=== PATIENT | male | born 1970 | race Caucasian/White ===

== ENCOUNTER 2017-06-17 14:04 | Inpatient (IN) | payer MEDICARE, OTHER ==
[2017-06-17 15:03] LABS: BASO % 0.5 % (0.0-2.0); EOS % 0.7 % (0.0-4.0); HEMATOCRIT 41.8 % (35.0-51.0); LYMPH # 1.9 K/uL (1.0-4.3); MEAN CELL VOLUME 94.1 fL (80.0-94.0); MEAN CORPUSCULAR HEMOGLOBIN 31.8 pg (27.0-31.0); MEAN CORPUSCULAR HGB CONC 33.8 g/dL (33.0-37.0); MEAN PLATELET VOLUME 7.4 fL (7.2-11.7); MONO # 0.6 K/uL (0.0-0.8); MONO % 9.4 % (0.0-10.0); NRBC % 0.1 % (0.0-2.0); RED CELL DISTRIBUTION WIDTH 13.5 % (11.5-14.5); WHITE BLOOD COUNT 5.9 K/uL (4.8-10.8)
[2017-06-17 15:13] LABS: CHLORIDE 100 mmol/L (98-107)
[2017-06-17 15:14] LABS: POTASSIUM 4.5 mmol/L (3.6-5.2); SODIUM 137 mmol/L (132-148)
[2017-06-17 15:16] LABS: CARBON DIOXIDE 28 mmol/L (22-30); GFR AFRICAN-AMERICAN > 60
[2017-06-17 15:17] LABS: ALB/GLOB RATIO 1.5 (1.0-2.1); ALCOHOL SERUM < 10 mg/dl (0-10); ALKALINE PHOSPHATASE 68 U/L (38-126); ALT/SGPT 103 U/L (21-72); AST/SGOT 95 U/L (17-59); BILIRUBIN,TOTAL 0.5 mg/dL (0.2-1.3); BLOOD UREA NITROGEN 16 mg/dL (9-20); GLUCOSE,RANDOM 86 mg/dL (75-110); TOTAL PROTEIN 7.2 g/dL (6.3-8.3)
--- NOTE | 2017-06-17 15:33 | C.PDOC ---
History Of Present Illness 47 year old male presents to Emergency Department requesting detox from heroin. Notes last use was today. Patient is pre-screened. Otherwise, denies any active physical complaints at this time. Time Seen by Provider: 06/17/17 14:43 Chief Complaint (Nursing): Substance Abuse History Per: Patient History/Exam Limitations: no limitations Onset/Duration Of Symptoms: Gradual Current Symptoms Are (Timing): Still Present Suicide/Self Injury Attempted (Context): None Modifying Factor(s): Other (heorin) Severity: None Pain Scale Rating Of: 0 Associated Symptoms: denies: Suicidal Thoughts, Suicidal Plan Involuntary Hold By: None Recent travel outside of the [place]: No Additional History Per: Patient Past Medical History Reviewed: Historical Data, Nursing Documentation, Vital Signs Vital Signs: Last Vital Signs Temp 97.9 F 06/17/17 14:08 Pulse 78 06/17/17 14:08 Resp 18 06/17/17 14:08 BP 104/72 06/17/17 14:08 Pulse Ox 95 06/17/17 15:36 - Medical History PMH: Asthma Denies: Diabetes, Hepatitis, HIV, HTN, Seizures, Sexually Transmitted Disease - [facility] Procedures DETOXIFICATION SERVICES FOR SUBSTANCE ABUSE TREATMENT (11/14/15) Family History: States: Unknown Family Hx - Social History Hx Alcohol Use: Yes Hx Substance Use: Yes - Immunization History Hx Tetanus Toxoid Vaccination: Yes Hx Influenza Vaccination: Yes Hx Pneumococcal Vaccination: No Review Of Systems Except As Marked, All Systems Reviewed And Found Negative. Constitutional: Negative for: Fever, Chills Cardiovascular: Negative for: Chest Pain, Palpitations Respiratory: Negative for: Cough, Shortness of Breath Gastrointestinal: Negative for: Nausea, Vomiting, Abdominal Pain, Diarrhea Neurological: Negative for: Headache, Dizziness Psych: Negative for: Withdrawal Physical Exam - Physical Exam Appears: Non-toxic, No Acute Distress, Other (no signs of withdrawal) Skin: Normal Color, Warm, Dry Head: Atraumatic, Normacephalic Eye(s): bilateral: Normal Inspection Oral Mucosa: Moist Neck: Normal ROM, Supple Chest: Symmetrical Cardiovascular: Rhythm Regular, No Murmur Respiratory: Normal Breath Sounds, No Rales, No Rhonchi, No Wheezing Extremity: Bilateral: Atraumatic, Normal ROM Neurological/Psych: Oriented x3, Normal Speech ED Course And Treatment - Laboratory Results Result Diagrams: 06/17/17 14:56 06/17/17 14:56 O2 Sat by Pulse Oximetry: 95 (RA) Pulse Ox Interpretation: Normal Medical Decision Making Medical Decision Making: Impression: 47 year old male requesting heroin detox. Plan: * Blood work * Urinalysis * Crisis evaluation Progress note: Labs ordered and reviewed. In my clinical judgment patient is medically cleared and stable for psychiatric admission. Patient was accepted for detox under Dr Welch service Disposition Counseled Patient/Family Regarding: Need For Followup - Disposition Disposition: HOSPITALIZED Disposition Time: 16:30 Condition: STABLE Forms: [employer] (Wallisian) - POA Present On Arrival: None - Clinical Impression Clinical Impression: Heroin abuse - PA / TUBE TESTER / Resident Statement MD/DO has reviewed & agrees with the documentation as recorded. - Scribe Statement The provider has reviewed the documentation as recorded by the Scribe Damion Herring All medical record entries made by the Scribe were at my direction and personally dictated by me. I have reviewed the chart and agree that the record accurately reflects my personal performance of the history, physical exam, medical decision making, and the department course for this patient. I have also personally directed, reviewed, and agree with the discharge instructions and disposition. Decision To Admit - Pt Status Changed To: Hospital Disposition Of: Inpatient - Admit Certification Admit to Inpatient:: After my assessment, the patient will require hospitalization for at least two midnights. This is because of the severity of symptoms shown, intensity of services needed, and/or the medical risk in this patient being treated as an outpatient. - InPatient: Physician Admission Certification: I certify that this patient requires 2 or more midnights of care for the following reason:: Patient to be admitted for detox of opiates - . Bed Request Type: Detox Patient Diagnosis: Heroin abuse
[2017-06-17 16:16] LABS: RBC URINE 1 /hpf (0-3); URINE BACTERIA RARE (<OCC); URINE BILIRUBIN NEGATIVE (NEGATIVE); URINE BLOOD NEGATIVE (NEGATIVE); URINE COLOR Yellow (YELLOW); URINE GLUCOSE (UA) NORMAL (Normal); URINE KETONE NEGATIVE (NEGATIVE); URINE LEUKOCYTE ESTERASE NEG Leu/uL (Negative); URINE PROTEIN NEGATIVE (NEGATIVE); WBC URINE < 1 /hpf (0-5)
[2017-06-17] MEDS ORDERED: Aluminum Hydroxide/Magnesium Hydroxide Susp (30 mL) PO PRN (19:45)
--- NOTE | 2017-06-17 19:54 | PCM.BM ---
<Evie Orta - Last Filed: 06/17/17 19:52> Treatment Plan Problems - Problems identified on initial assessmt Potential for opiate withdrawal Date Initiated: 06/17/17 Time Initiated: 19:53 Assessment reference: NA Status: Active Treatment assets and liabiliti Patient Assests: adapts well, cooperative, ADL independent, negotiates basic needs, cognitively intact Patient Liabilities: substance abuse - Milieu Protocol Maintain good personal hygiene: daily Encourage regular showers, daily Remind patient to perform daily oral care, daily Assist patient to perform ADL's Conduct patient checks and document Observation sheet: Q15 minutes Maintain personal safety: every shift Educate patient to report safety concerns to staff, every shift Monitor environment for contraband/sharps Medication safety: Monitor for expected outcome, potential side effects: every shift, Assess barriers to learning: every shift, Assess readiness for medication education: every shift <Dante Welch - Last Filed: 06/18/17 22:29> - Diagnosis (1) Opioid use disorder, severe, dependence Status: Acute Interventions: 06/18/17 22:29 * Assess 7x/week regarding severity of withdrawal * Educate regarding risks, benefits, side effects and alternatives of medications * Use Motivational Interviewing for abstinence * Use CBT for relapse prevention * Medication management for withdrawal symptoms * Encourage medication assisted treatment * <Margot Perdomo - Last Filed: 06/19/17 13:07> Family Contact Family involvement: Famliy/SO not involved Family contact: Patient declines to allow family contact at present - Goals for Treatment Patient goals for treatment: Complete detox and apply for [facility]. Discharge/Continuing Care - Education Needs Education Needs: Patient Medication, Patient Diagnosis/Disease Process, Patient Coping Skills, Patient Anger Management skills, Patient Placement options, Patient Community resources - Discharge Discharge Criteria: Free of agitation, Normal sleep pattern, No longer exhibiting s/s of withdrawal, Reduction of target symptoms Discharge to:: Substance Abuse Rehab - Treatment Team Participation Patient/Family/SO Statement: 06/19/17 13:07 "I wanna go to [facility]." Discussed with Family/SO: No Was Patient/Family/SO present at Treatment Team Meeting: Yes
--- NOTE | 2017-06-18 14:44 | PCM.PSYCH ---
Initial Psychiatric Evaluation - Initial Psychiatric Evaluation Type of Admission: Voluntary Legal Status: Capacity Chief Complaint (in patient's own words): "heroin" History of Present Illness and Precipitating Events: patient is seen, chart reviewed and case discussed. This is a 48 year old male, single with two children ages 19 and 12. He is homeless and on disability leave for a herniated disc in his back. The patient is here for heroin detox. He is using 10 bags IV daniel for 1 year with his last use 06/17/17 at 11:30am. He started using heroin in his 20's as well as snorting cocaine occasionally. This is his third detox. He detoxed with methadone in the past at a clinic in [place]. He has never been to rehab before or been on a maintenance dose of methadone. Patient smokes 9 cigarettes a day He denies all other drug and alcohol use. Past psych history:bipolar d/o, depression Family psych history: denies psych, drug or alcohol use disorders in family Medical history:asthma Current Medications: Active Medications Generic Name Dose Route Start Last Admin Trade Name Freq PRN Reason Stop Dose Admin Al Hydrox/Mg Hydrox/Simethicone 30 ml 06/17/17 19:45 Maalox 30 Ml PO TID PRN Indigestion / Heartburn Clonidine HCl 0.1 mg 06/17/17 19:45 Catapres PO Q8 PRN COWS Score More or Equal to 5 Hydroxyzine HCl 50 mg 06/17/17 19:46 Atarax PO Q6H PRN Anxiety Loperamide HCl 2 mg 06/17/17 19:45 Imodium PO Q8 PRN Diarrhea Methadone HCl 25 mg 06/18/17 09:45 06/18/17 10:08 Methadone PO 06/24/17 09:44 25 mg Q24H PRIMITIVO Administration Taper Ondansetron HCl 4 mg 06/17/17 19:45 Zofran Tab PO Q8 PRN Nausea/Vomiting Quetiapine Fumarate 100 mg 06/18/17 22:00 Seroquel PO HS PRIMITIVO Trazodone HCl 100 mg 06/17/17 19:46 Desyrel PO HS PRN Insomnia Past Psychiatric History - Past Psychiatric History Previous Treatment History: None Pertinent Medical Hx (Current Medical&Sleep Prob, Allergies): Allergies Allergy/AdvReac Type Severity Reaction Status Date / Time shrimp Allergy Intermediate ANGIOEDEMA Verified 11/14/15 17:25 No Known Home Med 06/17/17 Review of Systems - Constitutional Constitutional: Chills - EENT Eyes: Other (lacrimation) - Psychiatric Psychiatric: Abnormal Sleep Pattern, Anxiety, Difficulty Concentrating. absent : Auditory Hallucinations, Hallucinations, Homicidal Ideation, Memory Loss, Mood Swings, Paranoia, Suicidal Ideation, Visual Hallucinations, Tactile Hallucinations - Hematologic/Lymphatic Additional comments: Patient excessively yawned as well as goosebumps all over skins on arms Mental Status Examination - Personal Presentation Personal Presentation: Looks stated age - Affect Affect: Broad - Motor Activity Motor Activity: Calm - Reliability in Providing Information Reliability in Providing Information: Fair - Speech Speech: Organized - Mood Mood: Anxious - Formal Thought Process Formal Thought Process: No Impairment - Cognitive Functions Orientation: Person, Place, Situation, Time Sensorium: Alert Attention/Concentration: Attentive Estimate of Intelligence: Average Judgement: Intact, as evidence by: Insight regarding need for hospitalization Memory: Recent intact, as evidence by: Ability to recall events of the day, Remote intact, as evidenced by: Abilit to recall sig. life events - Risk Risk: Withdrawal, Diminished functioning - Strength & Assets Inventory Strength & Assets Inventory: Cooperative - Limitations Limitations: Other DSM 5 DX - DSM 5 DSM 5 Diagnosis: opioid withdrawal Opioid use disorder, severe - Recommended/Plan of Treatment Treatment Recommendations and Plan of Treatment: methadone detox As needed medications Gabapentin for augmentation Attend groups and activities Supportive therapy and psychoeducation [place] for abstinence CBT for relapse prevention Encourage MAT Refer to rehab or IOP Attend self-help groups as well 35 min Projected ELOS: 4-5 days Prognosis: good Discharge Plan and Discharge Criteria: no withdrawal rehabilitation and MAT - Smoking Cessation Smoking Cessation Initiated: No Reason for not providing: declines patch
--- NOTE | 2017-06-19 14:14 | PCM.PYCHPN ---
Psychiatric Progress Note - Psychiatric Progress Note Patient seen today, length of contact: 16 min Patient Chief Complaint: "I feel tired today" Problems Identified/Issues Discussed: The pt is seen, chart reviewed, case discussed with staff. The pt is compliant with medications and reports no side-effects aside from difficult sleep. Symptoms are improving but needs more time to stabilize. After care discussed, support and psychoeducation given. Still c/o withdrawal sxs despite meds and he looks sickly. High relapse risk w/o inpatient detox Medication Change: Yes (detox changes daily) Medical Record Reviewed: Yes Mental Status Examination - Cognitive Function Orientation: Person, Place, Situation, Time Memory: Intact Attention: WNL Concentration: WNL Association: WNL Fund of Knowledge: WNL - Mood Mood: Anxious - Affect Affect: Broad - Speech Speech: Appropriate - Formal Thought Process Formal Thought Process: No Impairment - Suicidal Ideation Suicidal Ideation: No - Homicidal Ideation Homicidal Ideation: No Goal/Treatment Plan - Goal/Treatment Plan Need for Continued Stay: Remain at risks for inpatient hospitalization, Severe depression anxiety, Discharge may exacerbated symptoms, Severe functional impairment Progress Toward Problem(s) and Goals/Treatment Plan: Continue medications Support and psychoeducation daily Attend groups and activities daily After care planning by SHENG Advised to try to stay awake during day to help him sleep at night Estimated Date of D/C: 06/23/17 - Smoking Cessation Smoking Cessation Initiated: No
--- NOTE | 2017-06-20 09:40 | PCM.PYCHPN ---
Psychiatric Progress Note - Psychiatric Progress Note Patient seen today, length of contact: 15 min Patient Chief Complaint: "I couldn't sleep again" Problems Identified/Issues Discussed: The pt is seen, chart reviewed, case discussed with staff. The pt is compliant with medications and reports no side-effects. Symptoms are improving but needs more time to stabilize. After care discussed, support and psychoeducation given. He wants to go to [facility] and doesn't want to be outside to prevent relapse Still anxious and insomniac feels depressed - has a hx of bipolar d/c Medication Change: Yes (detox changes daily, add remeron) Medical Record Reviewed: Yes Mental Status Examination - Cognitive Function Orientation: Person, Place, Situation, Time Memory: Intact Attention: WNL Concentration: Poor Association: WNL Fund of Knowledge: Poor - Mood Mood: Anxious - Affect Affect: Constricted - Speech Speech: Appropriate - Formal Thought Process Formal Thought Process: No Impairment - Suicidal Ideation Suicidal Ideation: No - Homicidal Ideation Homicidal Ideation: No Goal/Treatment Plan - Goal/Treatment Plan Need for Continued Stay: Remain at risks for inpatient hospitalization, Severe depression anxiety, Discharge may exacerbated symptoms, Severe functional impairment Progress Toward Problem(s) and Goals/Treatment Plan: Continue medications Support and psychoeducation daily Attend groups and activities daily After care planning done; he is going to [facility] in [place] Remeron is added for mild depressive sxs and insomnia Estimated Date of D/C: 06/23/17
--- NOTE | 2017-06-21 17:58 | PCM.PYCHPN ---
Psychiatric Progress Note - Psychiatric Progress Note Patient seen today, length of contact: 15 min Patient Chief Complaint: I'm feeling better but still has some withdrawal symptoms. Problems Identified/Issues Discussed: Patient seen. Chart reviewed. Case discussed with the staff. Issues related to illness and treatment were discussed with the patient. Reported compliant with treatment with no adverse affects. Tolerating treatment very well. Reported feeling better, but still have some withdrawal symptoms including chills, body aches, nausea. At the time of evaluation, patient was awake alert oriented 3, had no delusions , no auditory or visual hallucinations, no suicidal ideation or homicidal ideations. Medical Problems: Asthma Diagnostic Results: Reviewed DSM 5 Symptoms Update: Improving with treatment Medication Change: No Medical Record Reviewed: Yes Mental Status Examination - Cognitive Function Orientation: Person, Place, Situation, Time Memory: Intact Attention: WNL Concentration: WNL Association: WNL Fund of Knowledge: [facility] Decription of patient's judgement and insights: Fair - Mood Mood: Anxious - Affect Affect: Other (Appropriate) - Speech Speech: Appropriate - Formal Thought Process Formal Thought Process: No Impairment Psychotic Thoughts and Behaviors: None - Suicidal Ideation Suicidal Ideation: No - Homicidal Ideation Homicidal Ideation: No Goal/Treatment Plan - Goal/Treatment Plan Need for Continued Stay: Remain at risks for inpatient hospitalization, Discharge may exacerbated symptoms, Severe functional impairment Progress Toward Problem(s) and Goals/Treatment Plan: Patient education Supportive therapy Continue treatment as before. Estimated Date of D/C: 06/23/17 - Smoking Cessation Smoking Cessation Initiated: No
[2017-06-22 06:45] VITALS: RESP 18
--- NOTE | 2017-06-22 15:31 | PCM.PYCHPN ---
Psychiatric Progress Note - Psychiatric Progress Note Patient seen today, length of contact: 15 min Patient Chief Complaint: I'm feeling better but still has some withdrawal symptoms. I'm still feeling cold. Problems Identified/Issues Discussed: Patient seen. Chart reviewed. Case discussed with the staff. Issues related to illness and treatment were discussed with the patient. Reported compliant with treatment with no adverse affects. Tolerating treatment very well. Reported feeling better, but still have some withdrawal symptoms including chills, body aches. Most of the time patient stays in his room, isolative. Encouraged patient to go out of his room, socializing with other patients and attend activities on the unit. At the time of evaluation, patient was awake alert oriented 3, had no delusions , no auditory or visual hallucinations, no suicidal ideation or homicidal ideations. Medical Problems: Asthma Diagnostic Results: Reviewed DSM 5 Symptoms Update: Improving with treatment Medication Change: No Medical Record Reviewed: Yes Mental Status Examination - Cognitive Function Orientation: Person, Place, Situation, Time Memory: Intact Attention: WNL Concentration: WNL Association: [facility] Fund of Knowledge: [facility] Decription of patient's judgement and insights: Fair - Mood Mood: Anxious - Affect Affect: Other (Appropriate) - Speech Speech: Appropriate - Formal Thought Process Formal Thought Process: No Impairment Psychotic Thoughts and Behaviors: None - Suicidal Ideation Suicidal Ideation: No - Homicidal Ideation Homicidal Ideation: No Goal/Treatment Plan - Goal/Treatment Plan Need for Continued Stay: Remain at risks for inpatient hospitalization, Discharge may exacerbated symptoms, Severe functional impairment Progress Toward Problem(s) and Goals/Treatment Plan: Patient education Supportive therapy Continue treatment as before. Estimated Date of D/C: 06/23/17 - Smoking Cessation Smoking Cessation Initiated: No
[2017-06-23 03:30] VITALS: TEMP 98.5; O2SAT 97
--- NOTE | 2017-06-23 08:58 | PCM.PYCHDC ---
Mental Status Examination - Mental Status Examination Orientation: Person, Place, Situation, Time Memory: Intact Mood: Anxious Affect: Constricted Speech: Appropriate Attention: WNL Concentration: Poor Association: WNL Fund of Knowledge: WNL Formal Thought Process: No Impairment Suicidal Ideation: No Current Homicidal Ideation?: No Discharge Summary - Discharge Note Reason for Hospitalization: Heroin detox Consultations:: List each consultation separately and include: 1. Reason for request. 2. Findings. 3. Follow-up Summary of Hospital Course include:: 1. Description of specific treatment plan utilized for patients during their course of treatmen. 2. Summarize the time- course for resolution of acute symptoms and/or regressed behaviors. 3. Describe issues identified and worked on during hospitalization. 4. Describe medication utilized. 5. Describe medical problems identified and treated. 6. Reassessment of suicide risk Summary of Hospital Course: patient is seen, chart reviewed and case discussed. This is a 48 year old male, single with two children ages 19 and 12. He is homeless and on disability leave for a herniated disc in his back. The patient is here for heroin detox. He is using 10 bags IV daniel for 1 year with his last use 06/17/17 at 11:30am. He started using heroin in his 20's as well as snorting cocaine occasionally. This is his third detox. He detoxed with methadone in the past at a clinic in [place]. He has never been to rehab before or been on a maintenance dose of methadone. Patient smokes 9 cigarettes a day He denies all other drug and alcohol use. Past psych history:bipolar d/o, depression Family psych history: denies psych, drug or alcohol use disorders in family Medical history:asthma Hospital course: The pt was admitted and started on treatment with psychotherapy, support, psychoeducation and medications. MA and CBT used. The pt attended groups and activities, as well as milieu therapy. All the risks and benefits of medications are discussed and the patient understood and agreed. The pt improved with the treatments provided. After care discussed with the patient. He went to [facility] in [place] He was somewhat withdrawn but overall cooperative and motivated. He did not want to be outside b/c of "relapse risk" so had good insight - Final Diagnosis (DSM 5) Condition upon Discharge: IMPROVED DSM 5: opioid withdrawal Opioid use disorder, severe Disposition: REHAB FACILITY/REHAB UNIT Follow-up Treatment Plan: Continue below medications after discharge. Follow after care plan as discussed. Use relapse prevention skills Return to ER or call 911 if suicidal, homicidal or symptoms relapse. Stay away from stress, alcohol and drugs. See primary doctor regularly and get labs. Prescriptions/Medication Reconciliation: Mirtazapine [Remeron] 15 mg PO HS #30 tab QUEtiapine [Seroquel] 100 mg PO HS #30 tab
[2017-06-23 09:34] VITALS: BP 126/82; PULSE 89
== END 2017-06-23 11:10 | disposition home or self-care (01) | DRG 897 ==
LOC: C.ER 14:04 → C.7D 16:51
PROVIDERS: ADMIT Psychiatry & Neurology Psychiatry; ATTEND Psychiatry & Neurology Psychiatry
PROC: HZ2ZZZZ Detoxification Services for Substance Abuse Treatment (ICD-10-PCS; principal; 2017-06-17)
DX: F11.23 Opioid dependence with withdrawal (principal); F31.9 Bipolar disorder, unspecified; F17.210 Nicotine dependence, cigarettes, uncomplicated; G47.00 Insomnia, unspecified; J45.909 Unspecified asthma, uncomplicated; Z59.0 Homelessness; Z68.20 Body mass index [BMI] 20.0-20.9, adult

== ENCOUNTER 2017-07-27 21:44 | Inpatient (IN) | payer MEDICARE, OTHER ==
--- NOTE | 2017-07-27 21:59 | C.PDOC ---
History Of Present Illness 47 year old male with a Hx of ETOH and opiate abuse presents to the ER with a complaint of feeling depressed and suicidal for the past 5 days. Patient states he wants to jump in the middle of the [place] into moving traffic. Denies homicidal ideation or other complaints. Chief Complaint (Nursing): Psychiatric Evaluation History Per: Patient History/Exam Limitations: no limitations Onset/Duration Of Symptoms: Days Current Symptoms Are (Timing): Still Present Suicide/Self Injury Attempted (Context): None Associated Symptoms: Depression, Suicidal Thoughts, Suicidal Plan Involuntary Hold By: None Recent travel outside of the [place]: No Past Medical History Reviewed: Historical Data, Nursing Documentation, Vital Signs Vital Signs: Last Vital Signs Temp 98.2 F 07/27/17 21:47 Pulse 89 07/27/17 21:47 Resp 16 07/27/17 21:47 BP 138/86 07/27/17 21:47 Pulse Ox 98 07/27/17 22:05 - Medical History PMH: Asthma Surgical History: No Surg Hx - [facility] Procedures DETOXIFICATION SERVICES FOR SUBSTANCE ABUSE TREATMENT (06/17/17) Family History: States: Unknown Family Hx - Social History Hx Alcohol Use: Yes Hx Substance Use: Yes - Immunization History Hx Tetanus Toxoid Vaccination: Yes Hx Influenza Vaccination: Yes Hx Pneumococcal Vaccination: No Review Of Systems Constitutional: Negative for: Fever, Chills Gastrointestinal: Negative for: Nausea, Vomiting, Diarrhea Psych: Positive for: Depression, Suicidal ideation (w/ plan) Physical Exam - Physical Exam Appears: Non-toxic, No Acute Distress Skin: Normal Color, Warm, Dry Head: Atraumatic, Normacephalic Eye(s): bilateral: Normal Inspection Oral Mucosa: Moist Chest: Symmetrical Cardiovascular: Rhythm Regular Respiratory: Normal Breath Sounds, No Rales, No Rhonchi, No Wheezing Gastrointestinal/Abdominal: Soft, No Tenderness Neurological/Psych: Oriented x3, Normal Speech, Other (No focal deficits) ED Course And Treatment - Laboratory Results Result Diagrams: 07/27/17 22:07 07/27/17 22:07 O2 Sat by Pulse Oximetry: 98 (Room air) Pulse Ox Interpretation: Normal Progress Note: Blood work and urinalysis ordered. Crisis notified. Disposition Discussed With : Chelsi Falcon Doctor Will See Patient In The: Hospital Counseled Patient/Family Regarding: Diagnosis - Disposition Disposition: HOSPITALIZED Disposition Time: 23:51 Condition: STABLE Forms: [employer] (Chinese) - POA Present On Arrival: None - Clinical Impression Clinical Impression: Depressive disorder, Opiate abuse, continuous - Scribe Statement The provider has reviewed the documentation as recorded by the Scribe Teodoro Tan All medical record entries made by the Scribe were at my direction and personally dictated by me. I have reviewed the chart and agree that the record accurately reflects my personal performance of the history, physical exam, medical decision making, and the department course for this patient. I have also personally directed, reviewed, and agree with the discharge instructions and disposition.
[2017-07-27 22:10] LABS: BASO % 0.2 % (0.0-2.0); EOS # 0.1 K/uL (0.0-0.7); EOS % 0.5 % (0.0-4.0); HEMATOCRIT 36.7 % (35.0-51.0); LYMPH # 2.4 K/uL (1.0-4.3); LYMPH % 22.1 % (20.0-40.0); MEAN CELL VOLUME 95.1 fL (80.0-94.0); MEAN CORPUSCULAR HEMOGLOBIN 32.1 pg (27.0-31.0); MEAN CORPUSCULAR HGB CONC 33.8 g/dL (33.0-37.0); MEAN PLATELET VOLUME 7.6 fL (7.2-11.7); MONO % 8.9 % (0.0-10.0); RED CELL DISTRIBUTION WIDTH 13.3 % (11.5-14.5); WHITE BLOOD COUNT 10.8 K/uL (4.8-10.8)
[2017-07-27 22:22] LABS: ALCOHOL SERUM 20 mg/dl (0-10); ALKALINE PHOSPHATASE 63 U/L (38-126); ALT/SGPT 74 U/L (21-72); AST/SGOT 66 U/L (17-59); BILIRUBIN,TOTAL 0.7 mg/dL (0.2-1.3); BLOOD UREA NITROGEN 20 mg/dL (9-20); CALCIUM 8.6 mg/dl (8.6-10.4); CARBON DIOXIDE 30 mmol/L (22-30); CHLORIDE 102 mmol/L (98-107); GFR AFRICAN-AMERICAN > 60; GLUCOSE,RANDOM 95 mg/dL (75-110); POTASSIUM 3.7 mmol/L (3.6-5.2); SODIUM 139 mmol/L (132-148); TOTAL PROTEIN 8.3 g/dL (6.3-8.3)
[2017-07-27 22:23] LABS: RBC URINE < 1 /hpf (0-3); URINE BILIRUBIN NEGATIVE (NEGATIVE); URINE BLOOD NEGATIVE (NEGATIVE); URINE COLOR Yellow (YELLOW); URINE GLUCOSE (UA) NORMAL (Normal); URINE KETONE TRACE mg/dL (NEGATIVE); URINE LEUKOCYTE ESTERASE NEG Leu/uL (Negative); URINE PROTEIN NEGATIVE (NEGATIVE); WBC URINE < 1 /hpf (0-5)
--- NOTE | 2017-07-28 01:55 | PCM.BM ---
<MaryRachelle - Last Filed: 07/28/17 01:50> Treatment Plan Problems - Problems identified on initial assessmt Depression Date Initiated: 07/28/17 Time Initiated: 01:51 Assessment reference: NA Status: Active Subtanse Abuse Date Initiated: 07/28/17 Time Initiated: 01:51 Assessment reference: NA Status: Active Treatment assets and liabiliti Patient Assests: adapts well, cooperative, ADL independent, negotiates basic needs, cognitively intact Patient Liabilities: live alone, financial problems, poor support system, substance abuse - Milieu Protocol Maintain good personal hygiene: daily Encourage regular showers, daily Remind patient to perform daily oral care, other Assist patient to perform ADL's (PRN) Conduct patient checks and document Observation sheet: Q15 minutes Maintain personal safety: daily Educate patient to report safety concerns to staff, every shift Monitor environment for contraband/sharps Medication safety: Monitor for expected outcome, potential side effects: every shift, Assess barriers to learning: every shift, Assess readiness for medication education: every shift <Dante Welch - Last Filed: 07/29/17 00:07> - Diagnosis (1) Depressive disorder Status: Acute Interventions: 07/29/17 00:07 * Assess/adjust medications daily and /or as needed * See patient on an individual basis 7x/week to assess symptoms of depression * Monitor for side effects & effectiveness of medications * (2) Opioid use disorder, severe, dependence Status: Acute Interventions: 07/29/17 00:07 * Assess 7x/week regarding severity of withdrawal * Educate regarding risks, benefits, side effects and alternatives of medications * Use Motivational Interviewing for abstinence * Use CBT for relapse prevention * Medication management for withdrawal symptoms * Encourage medication assisted treatment * <Ruth Monae - Last Filed: 07/31/17 10:57> Family Contact Family involvement: Family/SO is involved Family contact: Patient declines to allow family contact at present Discharge/Continuing Care - Education Needs Education Needs: Patient Medication, Patient Coping Skills, Patient Placement options, Patient Community resources - Discharge Discharge Criteria: Tolerates medication w/o severe side effects, No longer exhibiting s/s of withdrawal, Reduction of target symptoms - Treatment Team Participation Discussed with Family/SO: No Was Patient/Family/SO present at Treatment Team Meeting: Yes
[2017-07-28] MEDS ORDERED: Aluminum Hydroxide/Magnesium Hydroxide Susp (30 mL) PO PRN (12:38)
--- NOTE | 2017-07-28 15:27 | PCM.PSYCH ---
Initial Psychiatric Evaluation - Initial Psychiatric Evaluation Type of Admission: Voluntary Legal Status: Capacity Chief Complaint (in patient's own words): "I'm tired of using drugs" History of Present Illness and Precipitating Events: This is a 47 year old male who lives with a cousin in [place]. He is single with two children living in [place] and is unemployed. Patient reports heroin use, last used 5 bags via snorting 1 day ago, average use 10 bags via snorting. He reports withdrawal symptoms of abdominal pain, nausea, vomiting. He also reports cocaine use via snorting. He denies any Xanax/ sedative/hypnotic/anxietolytic use or marijuana use. He reports alcohol use, about 4 drinks daily, but denies any withdrawal symptoms at this time. He reports tobacco use at 0.5 ppd. Patient reports feeling depressed, which he states as having "a long time, maybe like one month," as well as feelings of hopelessness and helplessness. He denies any auditory or visual hallucinations. He denies any suicidal ideations at this time. When asked about suicidal ideations expressed in the ED, he states he had strong feelings of desperation and "just said those things." He denies any plan to commit suicide and agrees to medication and treatment plan. Past medical history: asthma Past psychiatric history: denies Family psychiatric history: denies Family substance use: denies Current Medications: Active Medications Generic Name Dose Route Start Last Admin Trade Name Freq PRN Reason Stop Dose Admin Al Hydrox/Mg Hydrox/Simethicone 30 ml 07/28/17 12:38 Maalox 30 Ml PO TID PRN Indigestion / Heartburn Clonidine HCl 0.1 mg 07/28/17 12:38 Catapres PO Q8 PRN COWS Score More or Equal to 5 Fluoxetine HCl 20 mg 07/28/17 12:45 07/28/17 13:02 Prozac PO 20 mg DAILY PRIMITIVO Administration Loperamide HCl 2 mg 07/28/17 12:38 Imodium PO Q8 PRN Diarrhea Ondansetron HCl 4 mg 07/28/17 12:38 Zofran Tab PO Q8 PRN Nausea/Vomiting Trazodone HCl 50 mg 07/28/17 02:24 Desyrel PO HS PRN Sleep Past Psychiatric History - Past Psychiatric History Pertinent Medical Hx (Current Medical&Sleep Prob, Allergies): Allergies Allergy/AdvReac Type Severity Reaction Status Date / Time shrimp Allergy Intermediate ANGIOEDEMA Verified 07/27/17 21:49 Mirtazapine [Remeron] 15 mg PO HS #30 tab 06/23/17 QUEtiapine [Seroquel] 100 mg PO HS #30 tab 06/23/17 Fluoxetine HCl [Prozac] 40 mg PO DAILY 07/27/17 Review of Systems - Review of Systems All systems: reviewed and no additional remarkable complaints except - Neurological Neurological: absent: Abnormal Gait, Tremor - Psychiatric Psychiatric: Depression, Irritability. absent: Homicidal Ideation, Suicidal Ideation Mental Status Examination - Personal Presentation Personal Presentation: Looks stated age - Affect Affect: Constricted, Depressed - Motor Activity Motor Activity: Calm - Reliability in Providing Information Reliability in Providing Information: Poor, due to altered mood - Speech Speech: Organized, Relevant - Mood Mood: Depressed - Formal Thought Process Formal Thought Process: No Impairment - Obsessions/Compulsions Obsessions: No Compulsions: No - Cognitive Functions Orientation: Person, Place, Situation, Time Sensorium: Alert Attention/Concentration: Attentive Abstract Thinking: [place] Estimate of Intelligence: Average Judgement: Imparied, as evidence by: Poor judgement Memory: Recent intact, as evidence by: Ability to recall events of the day, Remote intact, as evidenced by: Abilit to recall sig. life events - Risk Risk: Diminished functioning - Strength & Assets Inventory Strength & Assets Inventory: Cooperative - Limitations Limitations: Living alone DSM 5 DX - DSM 5 DSM 5 Diagnosis: Major depressive disorder, recurrent, severe w/o psychosis Opioid use disorder severe Opioid withdrawal Cocaine use disorder severe Alcohol use disorder severe Tobacco use disorder severe - Recommended/Plan of Treatment Treatment Recommendations and Plan of Treatment: Methadone detox Prozac for depression Gabapentin for augmentation As needed medications Attend groups and activities Supportive therapy and psychoeducation [place] for abstinence CBT for relapse prevention Encourage MAT Refer to rehab or IOP, and self-help groups. Smoking cessation with [place] Nicotine patch if requested 33 min Projected ELOS: 4-5 days Prognosis: Good with treatment Discharge Plan and Discharge Criteria: No withdrawal symptoms Refer to rehab - Smoking Cessation Smoking Cessation Initiated: Yes
[2017-07-29 07:35] VITALS: O2SAT 97
--- NOTE | 2017-07-29 11:41 | PCM.PYCHPN ---
Psychiatric Progress Note - Psychiatric Progress Note Patient seen today, length of contact: 16 min Patient Chief Complaint: "I'm tired" Problems Identified/Issues Discussed: This patient was seen, chart reviewed, and case discussed with staff. Patient reports poor sleep overnight. He states his mood has improved since yesterday. Staff report he was very isolated, not social, and did not participate in unit activities. He was encouraged to step out of his room more often. Patient is compliant with medications and denies any side effects. Symptoms are improving but need more time to stabilize. After care discussed, support and psychoeducation given. Medication Change: Yes (detox changes daily) Medical Record Reviewed: Yes Mental Status Examination - Cognitive Function Orientation: Person, Place, Situation, Time Memory: Intact Attention: Poor Concentration: Poor Association: WNL Fund of Knowledge: Poor - Mood Mood: Depressed - Affect Affect: Constricted, Depressed - Speech Speech: Soft - Formal Thought Process Formal Thought Process: No Impairment - Suicidal Ideation Suicidal Ideation: No - Homicidal Ideation Homicidal Ideation: No Goal/Treatment Plan - Goal/Treatment Plan Need for Continued Stay: Severe depression anxiety, Discharge may exacerbated symptoms, Severe functional impairment Progress Toward Problem(s) and Goals/Treatment Plan: Methadone detox Prozac for depression Gabapentin for augmentation As needed medications Attend groups and activities Supportive therapy and psychoeducation [place] for abstinence CBT for relapse prevention Encourage MAT Refer to rehab or IOP, and self-help groups. Smoking cessation with [place] Nicotine patch if requested - Smoking Cessation Smoking Cessation Initiated: Yes
--- NOTE | 2017-07-30 15:44 | PCM.PYCHPN ---
Psychiatric Progress Note - Psychiatric Progress Note Patient seen today, length of contact: 17 Patient Chief Complaint: "I'm not good" Problems Identified/Issues Discussed: This patient was seen, chart reviewed, and case discussed with staff. Patient reports poor sleep and appetite. He requests medication change because "the trazodone isn't working." He states his withdrawal is "okay." He reports his mood to be similar to yesterday. Staff continue to report that he is isolated and non-social. He was encouraged to step out of his room more. Patient is compliant with medications and denies any side effects. Symptoms are improving but need more time to stabilize. After care discussed, support and psychoeducation given. Medication Change: Yes (Methadone taper, increase trazodone) Medical Record Reviewed: Yes Mental Status Examination - Cognitive Function Orientation: Person, Place, Situation, Time Memory: Intact Attention: Poor Concentration: Poor Association: WNL Fund of Knowledge: Poor - Mood Mood: Depressed - Affect Affect: Constricted, Depressed - Speech Speech: Soft - Formal Thought Process Formal Thought Process: No Impairment - Suicidal Ideation Suicidal Ideation: No - Homicidal Ideation Homicidal Ideation: No Goal/Treatment Plan - Goal/Treatment Plan Need for Continued Stay: Severe depression anxiety, Discharge may exacerbated symptoms, Severe functional impairment Progress Toward Problem(s) and Goals/Treatment Plan: Methadone detox Prozac for depression Gabapentin for augmentation As needed medications Attend groups and activities Supportive therapy and psychoeducation [place] for abstinence CBT for relapse prevention Encourage MAT Refer to rehab or IOP, and self-help groups. Smoking cessation with [place] Nicotine patch if requested Estimated Date of D/C: 08/01/17 - Smoking Cessation Smoking Cessation Initiated: Yes
--- NOTE | 2017-07-31 11:37 | PCM.PYCHPN ---
Psychiatric Progress Note - Psychiatric Progress Note Patient seen today, length of contact: 18 min Patient Chief Complaint: "I'm still depressed" Problems Identified/Issues Discussed: This patient was seen, chart reviewed, and case discussed with staff. He semi-threatened that if he is released today or tomorrow he would come back to ED b/c he "definitely" will relapse and "get suicidal." When asked to elaborate he said he was accepted by [facility] for Friday, which is when his 30-day ban ends there. He says he will have to stay with his "drug- using friends" or in a jail "where there are drugs." He got quite disturbed when the possibility of a d/c discussed for tomorrow He is indeed depressed, though - doesn't eat his food, sleep is poor even with meds and is isolated a lot but improving Support and psychoed given CBT used Medication Change: Yes (add low dose seroquel for sleep and mood) Medical Record Reviewed: Yes Mental Status Examination - Cognitive Function Orientation: Person, Place, Situation, Time Memory: Intact Attention: Poor Concentration: Poor Association: WNL Fund of Knowledge: Poor - Mood Mood: Depressed - Affect Affect: Constricted, Depressed - Speech Speech: Soft - Formal Thought Process Formal Thought Process: No Impairment - Suicidal Ideation Suicidal Ideation: No - Homicidal Ideation Homicidal Ideation: No Goal/Treatment Plan - Goal/Treatment Plan Need for Continued Stay: Severe depression anxiety, Discharge may exacerbated symptoms, Severe functional impairment Progress Toward Problem(s) and Goals/Treatment Plan: Methadone detox ending Prozac for depression Seroquel for depression and sleep Gabapentin for augmentation As needed medications Attend groups and activities Supportive therapy and psychoeducation [place] for abstinence CBT for relapse prevention Encourage MAT Refer to rehab or IOP, and self-help groups. Smoking cessation with [place] Nicotine patch if requested Estimated Date of D/C: 08/05/17 If changed, why: Needs to go door to door
[2017-08-01 06:59] VITALS: RESP 18
--- NOTE | 2017-08-01 13:21 | PCM.PYCHPN ---
Psychiatric Progress Note - Psychiatric Progress Note Patient seen today, length of contact: 17 min Patient Chief Complaint: "I'm not doing well, very worried about my life after here" Problems Identified/Issues Discussed: This patient is seen, chart reviewed, and case discussed with staff. Support and psychoed given CBT used Diet Clerk spoke to his insurance doctor. He said he WOULD approve his stay until Friday IF they cannot find a "partial care with boarding" We have NOT heard from them since Ther eis no partial care with boarding He cannot go home - he is homeless and he stays with friend who use He is threatening suicide IF he is discharged anywhere but [facility] [place] [facility] [employer] [facility] b/c he wants to go door to door He is NOT eligible for other rehabs due to insurance, hx of suicide threat and also they are always with 2-3 week wait list in [facility] considered getting him today but then they called and resumed Saturday 08/04 admission He agreed with that Sleep is still a problem Medication Change: Yes (methadone ended) Medical Record Reviewed: Yes Mental Status Examination - Cognitive Function Orientation: Person, Place, Situation, Time Memory: Intact Attention: Poor Concentration: Poor Association: WNL Fund of Knowledge: Poor - Mood Mood: Depressed - Affect Affect: Constricted, Depressed - Speech Speech: Soft - Formal Thought Process Formal Thought Process: No Impairment - Suicidal Ideation Suicidal Ideation: No - Homicidal Ideation Homicidal Ideation: No Goal/Treatment Plan - Goal/Treatment Plan Need for Continued Stay: Severe depression anxiety, Discharge may exacerbated symptoms, Severe functional impairment Progress Toward Problem(s) and Goals/Treatment Plan: Methadone detox ended Prozac for depression Seroquel for depression and sleep Gabapentin for augmentation As needed medications Attend groups and activities Supportive therapy and psychoeducation [place] for abstinence CBT for relapse prevention Encourage MAT Refer to rehab or IOP, and self-help groups. Smoking cessation with [place] Nicotine patch if requested Estimated Date of D/C: 08/04/17
--- NOTE | 2017-08-02 09:28 | PCM.PYCHPN ---
Psychiatric Progress Note - Psychiatric Progress Note Patient seen today, length of contact: 16 min Patient Chief Complaint: I am still withdrawing.' Problems Identified/Issues Discussed: Patient seen and evaluated, chart reviewed and discussed with the nurse. Patient remained isolated, confined and withdrawn. He still reports withdrawal symptoms including nausea, headaches, cramps and sweating. He reports depressed mood and at times feelings of hopelessness and helplessness. He is taking medication and denies any side effects. Symptoms are improving but he needs more time to stabilize. Supportive therapy and psychoeducation were given. Medication Change: Yes (methadone ended) Medical Record Reviewed: Yes Mental Status Examination - Cognitive Function Orientation: Person, Place, Situation, Time Memory: Intact Attention: WNL Concentration: Poor Association: WNL Fund of Knowledge: Poor - Mood Mood: Depressed - Affect Affect: Constricted, Depressed - Speech Speech: Soft - Formal Thought Process Formal Thought Process: No Impairment - Suicidal Ideation Suicidal Ideation: No - Homicidal Ideation Homicidal Ideation: No Goal/Treatment Plan - Goal/Treatment Plan Need for Continued Stay: Severe depression anxiety, Discharge may exacerbated symptoms, Severe functional impairment Progress Toward Problem(s) and Goals/Treatment Plan: Methadone detox ended Prozac for depression Seroquel for depression and sleep Gabapentin for augmentation As needed medications Attend groups and activities Supportive therapy and psychoeducation [place] for abstinence CBT for relapse prevention Encourage MAT Refer to rehab or IOP, and self-help groups. Smoking cessation with [place] Nicotine patch if requested Estimated Date of D/C: 08/04/17 - Smoking Cessation Smoking Cessation Initiated: No
--- NOTE | 2017-08-03 22:22 | PCM.PYCHPN ---
Psychiatric Progress Note - Psychiatric Progress Note Patient seen today, length of contact: 15 minutes Patient Chief Complaint: I am better with her treatment. Problems Identified/Issues Discussed: Patient seen, chart reviewed, case discussed with the staff. Issues related to illness and treatment were discussed with the patient and staff. Reported compliant with treatment with no adverse effects. Feeling much better. Aftercare discussed with the patient. Patient was awake, alert and oriented 3. Denied any delusions, auditory or visual hallucinations, suicidal ideations or homicidal ideations at the time of evaluation.. Medical Problems: None reported Diagnostic Results: Reviewed DSM 5 Symptoms Update: Improving with treatment Medication Change: No Medical Record Reviewed: Yes Mental Status Examination - Cognitive Function Orientation: Person, Place, Situation, Time Memory: Intact Attention: WNL Concentration: WNL Association: WNL Fund of Knowledge: [facility] Decription of patient's judgement and insights: Fair - Mood Mood: Neutral - Affect Affect: Other (Appropriate) - Speech Speech: Soft - Formal Thought Process Formal Thought Process: No Impairment - Suicidal Ideation Suicidal Ideation: No - Homicidal Ideation Homicidal Ideation: No Goal/Treatment Plan - Goal/Treatment Plan Need for Continued Stay: Remain at risks for inpatient hospitalization, Discharge may exacerbated symptoms, Severe functional impairment Progress Toward Problem(s) and Goals/Treatment Plan: Patient education Supportive therapy Continue treatment as before Patient wants to go to [facility] for follow[facility]up care after discharge from the hospital. Estimated Date of D/C: 08/04/17 - Smoking Cessation Smoking Cessation Initiated: No
[2017-08-04 07:48] VITALS: BP 111/72; PULSE 66; TEMP 97
--- NOTE | 2017-08-04 10:18 | PCM.PYCHDC ---
Mental Status Examination - Mental Status Examination Orientation: Person, Place, Situation, Time Memory: Intact Mood: Anxious Affect: Broad Speech: Appropriate Attention: WNL Concentration: WNL Association: WNL Fund of Knowledge: WNL Formal Thought Process: No Impairment Suicidal Ideation: No Current Homicidal Ideation?: No Discharge Summary - Discharge Note Reason for Hospitalization: heroin detox, depression Psychiatric History (includes Medical, Family, Personal Hx): denies Consultations:: List each consultation separately and include: 1. Reason for request. 2. Findings. 3. Follow-up Summary of Hospital Course include:: 1. Description of specific treatment plan utilized for patients during their course of treatmen. 2. Summarize the time- course for resolution of acute symptoms and/or regressed behaviors. 3. Describe issues identified and worked on during hospitalization. 4. Describe medication utilized. 5. Describe medical problems identified and treated. 6. Reassessment of suicide risk Summary of Hospital Course: On admission: This is a 47 year old male who lives with a cousin in [place]. He is single with two children living in [place] and is unemployed. Patient reports heroin use, last used 5 bags via snorting 1 day ago, average use 10 bags via snorting. He reports withdrawal symptoms of abdominal pain, nausea, vomiting. He also reports cocaine use via snorting. He denies any Xanax/ sedative/hypnotic/anxietolytic use or marijuana use. He reports alcohol use, about 4 drinks daily, but denies any withdrawal symptoms at this time. He reports tobacco use at 0.5 ppd. Patient reports feeling depressed, which he states as having "a long time, maybe like one month," as well as feelings of hopelessness and helplessness. He denies any auditory or visual hallucinations. He denies any suicidal ideations at this time. When asked about suicidal ideations expressed in the ED, he states he had strong feelings of desperation and "just said those things." He denies any plan to commit suicide and agrees to medication and treatment plan. Past medical history: asthma Past psychiatric history: denies Family psychiatric history: denies Family substance use: denies Hospital course: The patient was admitted and started on treatment with psychotherapy, support, psychoeducation, and medications. [place] and CBT used. Patient attended groups and activities, as well as milieu therapy. All the risks and benefits of medications are discussed, and the patient understood and agreed. Patient improved with the treatments provided. After care discussed with the patient. - Final Diagnosis (DSM 5) Condition upon Discharge: STABLE DSM 5: Major depressive disorder, recurrent, severe, without psychosis Opioid use disorder, severe Opioid withdrawal Cocaine use disorder, severe Alcohol use disorder, severe Tobacco use disorder, severe Disposition: HOME/ ROUTINE Follow-up Treatment Plan: Continue below medications after discharge Follow after care plan as discussed Use relapse prevention skills Return to ER or call 911 if suicidal, homicidal, or if symptoms relapse Stay away from stress, alcohol, and drugs See primary doctor regularly and get labs Prescriptions/Medication Reconciliation: FLUoxetine [Prozac] 20 mg PO DAILY #30 cap hydrOXYzine HCl [Atarax] 50 mg PO HS #30 tab QUEtiapine [SEROquel] 50 mg PO HS #30 tab
== END 2017-08-04 10:45 | disposition home or self-care (01) | DRG 897 ==
LOC: C.ER 21:44 → C.5E 23:52
PROVIDERS: ADMIT Psychiatry & Neurology Psychiatry; ATTEND Psychiatry & Neurology Psychiatry
PROC: HZ2ZZZZ Detoxification Services for Substance Abuse Treatment (ICD-10-PCS; principal; 2017-07-27)
DX: F11.23 Opioid dependence with withdrawal (principal); R45.851 Suicidal ideations; F33.2 Major depressive disorder, recurrent severe without psychotic features; F10.120 Alcohol abuse with intoxication, uncomplicated; F17.200 Nicotine dependence, unspecified, uncomplicated; J45.909 Unspecified asthma, uncomplicated; F14.10 Cocaine abuse, uncomplicated; Y90.1 Blood alcohol level of 20-39 mg/100 ml

== ENCOUNTER 2017-11-01 18:44 | Inpatient (IN) | payer MEDICARE, OTHER ==
--- NOTE | 2017-11-01 19:36 | C.PDOC ---
History Of Present Illness 47 y/o male, with Hx of cocaine and heroin abuse, presents to ED initially complaining of suicidal ideation. However, upon evaluation, pt denies suicidal or homicidal ideation. Pt is requesting detox from cocaine and heroin. Denies any active physical complaints at this time. Time Seen by Provider: 11/01/17 18:56 Chief Complaint (Nursing): Psychiatric Evaluation History Per: Patient History/Exam Limitations: no limitations Onset/Duration Of Symptoms: Gradual Current Symptoms Are (Timing): Still Present Suicide/Self Injury Attempted (Context): None Severity: None Pain Scale Rating Of: 0 Associated Symptoms: denies: Suicidal Thoughts, Suicidal Plan Involuntary Hold By: None Recent travel outside of the [place]: No Additional History Per: Patient Past Medical History Reviewed: Historical Data, Nursing Documentation, Vital Signs Vital Signs: Last Vital Signs Temp 97.8 F 11/01/17 20:19 Pulse 67 11/01/17 20:19 Resp 16 11/01/17 20:19 BP 121/73 11/01/17 20:19 Pulse Ox 97 11/01/17 20:19 - Medical History PMH: Anxiety, Asthma, Back Problems (Back Pain), Bipolar Disorder, Depression Denies: Diabetes, Hepatitis, HIV, HTN, Seizures, Sexually Transmitted Disease - [facility] Procedures DETOXIFICATION SERVICES FOR SUBSTANCE ABUSE TREATMENT (07/27/17) Family History: States: Unknown Family Hx - Social History Hx Alcohol Use: Yes Hx Substance Use: Yes - Immunization History Hx Tetanus Toxoid Vaccination: Yes Hx Influenza Vaccination: No Hx Pneumococcal Vaccination: No Review Of Systems Except As Marked, All Systems Reviewed And Found Negative. Constitutional: Negative for: Fever, Chills Cardiovascular: Negative for: Chest Pain, Palpitations Respiratory: Negative for: Cough, Shortness of Breath Gastrointestinal: Negative for: Nausea, Vomiting, Abdominal Pain Psych: Negative for: Suicidal ideation Physical Exam - Physical Exam Appears: Non-toxic, No Acute Distress Skin: Normal Color, Warm, Dry Head: Atraumatic, Normacephalic Eye(s): bilateral: Normal Inspection Oral Mucosa: Moist Cardiovascular: Rhythm Regular, No Murmur Respiratory: Normal Breath Sounds, No Rales, No Rhonchi, No Wheezing Gastrointestinal/Abdominal: Soft, No Tenderness Extremity: Normal ROM, No Deformity Neurological/Psych: Oriented x3, Normal Speech ED Course And Treatment - Laboratory Results Result Diagrams: 11/01/17 19:34 11/01/17 19:34 Medical Decision Making Medical Decision Making: Blood work, Urinalysis ordered and reviewed. Pt is medically cleared. Disposition - Disposition Disposition: HOSPITALIZED Disposition Time: 21:13 Condition: STABLE Forms: [facility] (Divehi) - Clinical Impression Clinical Impression: Opiate addiction - Scribe Statement The provider has reviewed the documentation as recorded by the Scribe Damion Herring All medical record entries made by the Scribe were at my direction and personally dictated by me. I have reviewed the chart and agree that the record accurately reflects my personal performance of the history, physical exam, medical decision making, and the department course for this patient. I have also personally directed, reviewed, and agree with the discharge instructions and disposition. Decision To Admit - Pt Status Changed To: Hospital Disposition Of: Inpatient - Admit Certification Admit to Inpatient:: After my assessment, the patient will require hospitalization for at least two midnights. This is because of the severity of symptoms shown, intensity of services needed, and/or the medical risk in this patient being treated as an outpatient. - InPatient: Physician Admission Certification: I certify that this patient requires 2 or more midnights of care for the following reason:: needs detox - . Bed Request Type: Detox Admitting Physician: Jennifer Pacheco Patient Diagnosis: Opiate addiction
[2017-11-01 19:37] LABS: BASO % 0.7 % (0.0-2.0); EOS % 0.2 % (0.0-4.0); HEMOGLOBIN 13.9 g/dL (12.0-18.0); LYMPH % 15.3 % (20.0-40.0); MEAN CELL VOLUME 94.8 fL (80.0-94.0); MEAN CORPUSCULAR HEMOGLOBIN 32.5 pg (27.0-31.0); MEAN CORPUSCULAR HGB CONC 34.3 g/dL (33.0-37.0); MEAN PLATELET VOLUME 7.3 fL (7.2-11.7); MONO # 0.3 K/uL (0.0-0.8); NEUT # 5.3 K/uL (1.8-7.0); NEUT % 78.8 % (50.0-75.0); RBC 4.27 Mil/uL (4.40-5.90); RED CELL DISTRIBUTION WIDTH 12.7 % (11.5-14.5); WHITE BLOOD COUNT 6.7 K/uL (4.8-10.8)
[2017-11-01 19:43] LABS: SPERM URINE FEW /hpf; URINE BACTERIA RARE (<OCC); URINE BILIRUBIN NEGATIVE (NEGATIVE); URINE BLOOD NEGATIVE (NEGATIVE); URINE CLARITY Clear (Clear); URINE COLOR Yellow (YELLOW); URINE GLUCOSE (UA) NORMAL (Normal); URINE LEUKOCYTE ESTERASE NEG Leu/uL (Negative); URINE PROTEIN 1+ mg/dL (NEGATIVE)
[2017-11-01 19:53] LABS: ALB/GLOB RATIO 1.4 (1.0-2.1); ALBUMIN 4.5 g/dL (3.5-5.0); ALT/SGPT 80 U/L (21-72); AST/SGOT 86 U/L (17-59); BLOOD UREA NITROGEN 27 mg/dL (9-20); CALCIUM 9.7 mg/dl (8.6-10.4); GFR AFRICAN-AMERICAN > 60; GFR NON-AFRICAN AMERICAN > 60
[2017-11-01 19:54] LABS: BARBITURATES, UR NEGATIVE (NEGATIVE); BENZODIAZEPINES, UR NEGATIVE (NEGATIVE); PHENCYCLIDINE, UR NEGATIVE (NEGATIVE)
[2017-11-01 19:56] LABS: ACETAMINOPHEN < 10.0 ug/mL (10.0-30.0); SALICYLATE < 1.0 [, mg/dL 1]
[2017-11-01 20:15] LABS: OPIATES, UR POSITIVE (NEGATIVE)
--- NOTE | 2017-11-01 22:11 | PCM.BM ---
<Malathi Saenz - Last Filed: 11/01/17 22:10> Treatment Plan Problems - Problems identified on initial assessmt Potential for opiate withdrawal Date Initiated: 11/01/17 Time Initiated: 22:10 Assessment reference: NA Status: Active Treatment assets and liabiliti Patient Assests: adapts well, cooperative, ADL independent, negotiates basic needs, cognitively intact Patient Liabilities: substance abuse - Milieu Protocol Maintain good personal hygiene: daily Encourage regular showers, daily Remind patient to perform daily oral care, daily Assist patient to perform ADL's Conduct patient checks and document Observation sheet: Q15 minutes Maintain personal safety: every shift Educate patient to report safety concerns to staff, every shift Monitor environment for contraband/sharps Medication safety: Monitor for expected outcome, potential side effects: every shift, Assess barriers to learning: every shift, Assess readiness for medication education: every shift <Dante Welch - Last Filed: 11/03/17 13:30> - Diagnosis (1) Opioid use disorder, severe, dependence Status: Acute Interventions: 11/03/17 13:30 * Assess 7x/week regarding severity of withdrawal * Educate regarding risks, benefits, side effects and alternatives of medications * Use Motivational Interviewing for abstinence * Use CBT for relapse prevention * Medication management for withdrawal symptoms * Encourage medication assisted treatment * <Margot Perdomo - Last Filed: 11/05/17 14:04> Family Contact Family involvement: Famliy/SO not involved - Goals for Treatment Patient goals for treatment: Complete detox and transition to methadone maintenance at [facility]. Discharge/Continuing Care - Education Needs Education Needs: Patient Medication, Patient Diagnosis/Disease Process, Patient Coping Skills, Patient Anger Management skills, Patient Placement options, Patient Community resources - Discharge Discharge Criteria: No longer exhibiting s/s of withdrawal, Reduction of target symptoms Discharge to:: Home - Treatment Team Participation Patient/Family/SO Statement: 11/05/17 14:03 "I wanna do methadone..." Discussed with Family/SO: No Was Patient/Family/SO present at Treatment Team Meeting: Yes
--- NOTE | 2017-11-03 00:09 | PCM.PSYCH ---
Initial Psychiatric Evaluation - Initial Psychiatric Evaluation Legal Status: Capacity Chief Complaint (in patient's own words): I'M TIRED OF NEEDED HEROIN TO FUNCTION Patient's Reaction to Hospitalization: I'VE BEREN AT [facility] DETOX BEFORE AND IT HELPED History of Present Illness and Precipitating Events: PT IS A 47 YEAR OLD SINGLE DOMICILED MALE LIVING WITH HIS COUSIN. PARENTS AREA , HE HAS A YOUNGER BROTHER. HE HAS NO PSYCHIATRIC HISTORY. 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 HE HAS NEVER BEEN IN THE . HE HAS BEEN ARRESTED FOR POSSESSION OF CDS AND SERVED A YEAR IN THE [facility]. THERE IS NO FAMILY HISTORY OF PSYCHIATRIC ILLNESS OR SUBSTANCE ABUSE. PT DENIES USE OF ANY OTHER DRUGS EXCEPT HEROINE AND COCAINE. HE STARTED USING HEROIN IN HIS 20S HE USES ABOUT 30 BAGS A DAY. HE OCCASIONALLY MIXES COCAINE WITH THE HEROIN , PT STARTED WITH PAIN KILLERS FOR HIS BACK/ PT HAS HAD ONE PREVIOUS DETOX AT [facility] AND NO OTHERS. HE HAS NEVER BEEN IN A REHAB PT HAS HEPATITIS C. PT/S WITHDRAWAL SYMPTOMS INCLUDE YAWNING RHINORRHEA HOT AND COLD SWEATS AND ANXIETY Current Medications: Active Medications Generic Name Dose Route Start Last Admin Trade Name Freq PRN Reason Stop Dose Admin Clonidine HCl 0.1 mg 11/01/17 21:35 Catapres PO Q8 PRN opiate withdrawal Hydroxyzine HCl 25 mg 11/01/17 21:35 11/02/17 21:02 Atarax PO 25 mg Q6 PRN Administration Anxiety Trazodone HCl 50 mg 11/01/17 21:34 11/02/17 21:03 Desyrel PO 50 mg HS PRN Administration Insomnia Past Psychiatric History - Past Psychiatric History Previous Treatment History: None Pertinent Medical Hx (Current Medical&Sleep Prob, Allergies): Allergies Allergy/AdvReac Type Severity Reaction Status Date / Time shrimp Allergy Intermediate ANGIOEDEMA Verified 11/01/17 19:02 No Known Home Med 11/01/17 Review of Systems - Constitutional Constitutional: Chills, Sweats, Malaise - EENT Eyes: UNREMARKABLE Ears: UNREMARKABLE Nose/Mouth/Throat: UNREMARKABLE - Cardiovascular Cardiovascular: UNREMARKABLE - Respiratory Respiratory: UNREMARKABLE - Gastrointestinal Gastrointestinal: UNREMARKABLE - Genitourinary Genitourinary: UNREMARKABLE - Reproductive: Male Reproductive:Male: UNREMARKABLE - Musculoskeletal Musculoskeletal: Arthralgias, Myalgias - Integumentary Integumentary: UNREMARKABLE - Neurological Neurological: Tremor - Psychiatric Psychiatric: Anxiety - Endocrine Endocrine: UNREMARKABLE - Hematologic/Lymphatic Hematologic: UNREMARKABLE Mental Status Examination - Personal Presentation Personal Presentation: Looks older than stated age - Affect Affect: Constricted - Motor Activity Motor Activity: Calm - Reliability in Providing Information Reliability in Providing Information: Good - Speech Speech: Organized - Mood Mood: Anxious - Formal Thought Process Formal Thought Process: No Impairment - Cognitive Functions Orientation: Person, Place, Situation, Time Sensorium: Alert Attention/Concentration: Attentive Abstract Thinking: As evidence by abstract perception of proverbs Estimate of Intelligence: Average Judgement: Intact, as evidence by: Good judgement Memory: Recent intact, as evidence by: 3/3 object recall, Remote intact, as evidenced by: Ability to recall historical events - Risk Risk: Withdrawal, Falls - Strength & Assets Inventory Strength & Assets Inventory: Intelligence, Employment history - Limitations Limitations: Other DSM 5 DX - DSM 5 DSM 5 Diagnosis: OPIOID USE DISORDER SEVERE CBT [facility] MILIEU RECREATIONAL THERAPY SUPPORTIVE PSYCHOTHERAPY OPIOID WITHDRAWAL METHADONE TAPER COCAINE USE DISORDER CBT [facility] MILIEU AND RECREATIONAL THERAPY SUPPORTIVE PSYCHOTHERAPY - Recommended/Plan of Treatment Treatment Recommendations and Plan of Treatment: SEE ABOVE Projected ELOS: 5 DAYS Prognosis: GOOD WITH TREATMENT Discharge Plan and Discharge Criteria: IOP - Smoking Cessation Smoking Cessation Initiated: No
[2017-11-04 08:35] LABS: HEPATITIS B SURFACE AG Negative (NEGATIVE)
[2017-11-04 08:41] LABS: HEPATITIS A IGM NEGATIVE (NEGATIVE); HEPATITIS B CORE AB NEGATIVE (NEGATIVE)
[2017-11-04 11:11] LABS: HEPATITIS C ANTIBODY REACTIVE (NEGATIVE)
--- NOTE | 2017-11-04 15:00 | PCM.PYCHPN ---
Psychiatric Progress Note - Psychiatric Progress Note Patient seen today, length of contact: 16 minutes Patient Chief Complaint: Im withdrawing Problems Identified/Issues Discussed: The pt is seen, chart reviewed, case discussed with staff. States that treatment is helping. Received 15mg methadone today Support given, CBT and AK used briefly No new symptoms reported, improving slowly and needs more time No SEs from medications, risks discussed. After care discussed - pt says she cannot stay clean outside and he really needs to do detox here and go to a rehab "or maybe methadone program" DSM 5 Symptoms Update: Heroin use disorder Heroin withdrawal Medication Change: Yes (detox changes daily) Medical Record Reviewed: Yes Mental Status Examination - Cognitive Function Orientation: Person, Place, Situation, Time Memory: Impaired Attention: WNL Concentration: WNL Association: WNL Fund of Knowledge: WNL - Mood Mood: Anxious - Affect Affect: Constricted - Speech Speech: Appropriate - Formal Thought Process Formal Thought Process: No Impairment - Suicidal Ideation Suicidal Ideation: No - Homicidal Ideation Homicidal Ideation: No Goal/Treatment Plan - Goal/Treatment Plan Need for Continued Stay: Discharge may exacerbated symptoms, Severe functional impairment Progress Toward Problem(s) and Goals/Treatment Plan: Continue medications Support and psychoeducation daily Attend groups and activities daily After care planning by SHENG Estimated Date of D/C: 11/06/17
--- NOTE | 2017-11-04 22:25 | PCM.PYCHPN ---
Psychiatric Progress Note - Psychiatric Progress Note Patient seen today, length of contact: 15 min Patient Chief Complaint: Im not well" Problems Identified/Issues Discussed: The pt is seen, chart reviewed, case discussed with staff. The pt is compliant with medications and reports no side-effects. Symptoms are improving but needs more time to stabilize. After care discussed, support and psychoeducation given. He now wants to go to a methadone program Medication Change: Yes (detox changes daily) Medical Record Reviewed: Yes Mental Status Examination - Cognitive Function Orientation: Person, Place, Situation, Time Memory: Impaired Attention: WNL Concentration: WNL Association: WNL Fund of Knowledge: WNL - Mood Mood: Anxious - Affect Affect: Constricted - Speech Speech: Appropriate - Formal Thought Process Formal Thought Process: No Impairment - Suicidal Ideation Suicidal Ideation: No - Homicidal Ideation Homicidal Ideation: No Goal/Treatment Plan - Goal/Treatment Plan Need for Continued Stay: Discharge may exacerbated symptoms, Severe functional impairment Progress Toward Problem(s) and Goals/Treatment Plan: Continue medications Support and psychoeducation daily Attend groups and activities daily After care planning by SHENG Estimated Date of D/C: 11/06/17
[2017-11-05 14:16] VITALS: RESP 18
--- NOTE | 2017-11-05 16:22 | PCM.PYCHPN ---
Psychiatric Progress Note - Psychiatric Progress Note Patient seen today, length of contact: 16 min Patient Chief Complaint: Im having trouble eating" Problems Identified/Issues Discussed: The pt is seen, chart reviewed, case discussed with staff. Patient complaining of nausea and abdominal pain which prevents him from obtaining adequate PO intake. He is requesting Ensure. The pt is compliant with medications and reports no side-effects. Symptoms are improving but needs more time to stabilize. After care discussed, support and psychoeducation given. He still wants to go to a methadone program Medication Change: Yes (detox changes daily) Medical Record Reviewed: Yes Mental Status Examination - Cognitive Function Orientation: Person, Place, Situation, Time Memory: Impaired Attention: WNL Concentration: WNL Association: WNL Fund of Knowledge: WNL - Mood Mood: Anxious - Affect Affect: Constricted - Speech Speech: Appropriate - Formal Thought Process Formal Thought Process: No Impairment - Suicidal Ideation Suicidal Ideation: No - Homicidal Ideation Homicidal Ideation: No Goal/Treatment Plan - Goal/Treatment Plan Need for Continued Stay: Discharge may exacerbated symptoms, Severe functional impairment Progress Toward Problem(s) and Goals/Treatment Plan: Continue medications Support and psychoeducation daily Attend groups and activities daily After care planning by SHENG Estimated Date of D/C: 11/06/17
[2017-11-05] MEDS ORDERED: Magnesium Hydroxide Susp 30 ml UD PO ONE (20:43)
--- NOTE | 2017-11-06 08:39 | PCM.PYCHDC ---
Mental Status Examination - Mental Status Examination Orientation: Person, Place, Situation, Time Memory: Intact Mood: Anxious Affect: Constricted Speech: Appropriate Attention: WNL Concentration: Poor Association: WNL Fund of Knowledge: Poor Formal Thought Process: No Impairment Suicidal Ideation: No Current Homicidal Ideation?: No Discharge Summary - Discharge Note Reason for Hospitalization: Opioid detox Consultations:: List each consultation separately and include: 1. Reason for request. 2. Findings. 3. Follow-up Summary of Hospital Course include:: 1. Description of specific treatment plan utilized for patients during their course of treatmen. 2. Summarize the time- course for resolution of acute symptoms and/or regressed behaviors. 3. Describe issues identified and worked on during hospitalization. 4. Describe medication utilized. 5. Describe medical problems identified and treated. 6. Reassessment of suicide risk Summary of Hospital Course: The pt was admitted and started on treatment with psychotherapy, support, psychoeducation and medications. DE and CBT used. The pt attended groups and activities, as well as milieu therapy. All the risks and benefits of medications are discussed and the patient understood and agreed. The pt improved with the treatments provided. He was in bed a lot and isolated but not very depressed. After care discussed with the patient. [facility] to [facility] - Diagnosis (1) Opioid use disorder, severe, dependence Current Visit: No Status: Acute - Final Diagnosis (DSM 5) Condition upon Discharge: STABLE Disposition: HOME/ ROUTINE Follow-up Treatment Plan: Continue below medications after discharge. Follow after care plan as discussed. Use relapse prevention skills Return to ER or call 911 if suicidal, homicidal or symptoms relapse. Stay away from stress, alcohol and drugs. See primary doctor regularly and get labs. Prescriptions/Medication Reconciliation: hydrOXYzine HCl [Atarax] 50 mg PO BID PRN #30 tab PRN Reason: Anxiety traZODone [Desyrel] 100 mg PO HS PRN #30 tab PRN Reason: Insomnia - Smoking Cessation Smoking Cessation Medication prescribed: No - Antipsychotic Medications Pt discharged on 2 or more routine antipsychotic medications: No
[2017-11-06 10:45] VITALS: BP 130/88; PULSE 80; TEMP 97.6; O2SAT 100
== END 2017-11-06 11:30 | disposition home or self-care (01) | DRG 895 ==
LOC: C.ER 18:44 → C.9E 21:07 → C.7D 21:18
PROVIDERS: ADMIT Psychiatry & Neurology Psychiatry; ATTEND Psychiatry & Neurology Psychiatry
PROC: HZ2ZZZZ Detoxification Services for Substance Abuse Treatment (ICD-10-PCS; principal; 2017-11-01)
PROC: HZ56ZZZ Individual Psychotherapy for Substance Abuse Treatment, Psychoeducation (ICD-10-PCS; 2017-11-01)
PROC: HZ99ZZZ Pharmacotherapy for Substance Abuse Treatment, Other Replacement Medication (ICD-10-PCS; 2017-11-01)
PROC: GZ3ZZZZ Medication Management (ICD-10-PCS; 2017-11-01)
DX: F11.23 Opioid dependence with withdrawal (principal); F14.10 Cocaine abuse, uncomplicated; R45.851 Suicidal ideations; F31.9 Bipolar disorder, unspecified; J45.909 Unspecified asthma, uncomplicated

== ENCOUNTER 2017-12-28 23:34 | Inpatient (IN) | payer OTHER ==
--- NOTE | 2017-12-29 00:14 | C.PDOC ---
History Of Present Illness Patient presents to the ER requesting detox from heroin, last use was 6 bag bags this morning. Patient also states he feels depressed and wants to talk to someone. Denies suicidal ideation or homicidal ideation. Time Seen by Provider: 12/29/17 00:14 Chief Complaint (Nursing): Substance Abuse History Per: Patient History/Exam Limitations: no limitations Onset/Duration Of Symptoms: Days Current Symptoms Are (Timing): Still Present Suicide/Self Injury Attempted (Context): None Modifying Factor(s): Other (Heroin) Severity: None Pain Scale Rating Of: 0 Associated Symptoms: Depression. denies: Suicidal Thoughts Involuntary Hold By: None Recent travel outside of the [place]: No Additional History Per: Patient Past Medical History Reviewed: Historical Data, Nursing Documentation, Vital Signs Vital Signs: Last Vital Signs Temp 98.5 F 12/29/17 03:07 Pulse 72 12/29/17 03:07 Resp 18 12/29/17 03:07 BP 112/69 12/29/17 03:07 Pulse Ox 96 12/29/17 03:07 - Medical History PMH: Anxiety, Asthma, Back Problems (Back Pain), Bipolar Disorder, Depression - [facility] Procedures DETOXIFICATION SERVICES FOR SUBSTANCE ABUSE TREATMENT (11/01/17) INDIV PSYCHOTHERAPY FOR SUBSTANCE ABUSE, PSYCHOEDUCATION (11/01/17) MEDICATION MANAGEMENT (11/01/17) PHARMACOTHERAPY FOR SUBSTANCE ABUSE, OTH REPLACE MED (11/01/17) Family History: States: No Known Family Hx - Social History Hx Alcohol Use: Yes Hx Substance Use: Yes (HEROIN) - Immunization History Hx Tetanus Toxoid Vaccination: Yes Hx Influenza Vaccination: Yes Hx Pneumococcal Vaccination: No Review Of Systems Constitutional: Negative for: Fever, Chills Gastrointestinal: Negative for: Nausea, Vomiting Psych: Positive for: Depression. Negative for: Suicidal ideation, Other ( Homicidal ideation) Physical Exam - Physical Exam Appears: Non-toxic Skin: Warm, Dry Head: Normacephalic Eye(s): bilateral: Normal Inspection Oral Mucosa: Moist Neck: Supple Chest: Symmetrical, No Tenderness Cardiovascular: Rhythm Regular Respiratory: No Rales, No Rhonchi, No Wheezing Gastrointestinal/Abdominal: Soft, No Tenderness Back: Normal Inspection Extremity: Normal ROM Extremity: Bilateral: Atraumatic Neurological/Psych: Oriented x3 Gait: Steady ED Course And Treatment - Laboratory Results Result Diagrams: 12/29/17 00:28 12/29/17 00:28 O2 Sat by Pulse Oximetry: 98 (Room air) Pulse Ox Interpretation: Normal Disposition Discussed With Dr.: Tarik Robins Comment: accepted the pt on his service and took over the care at 3:30 AM Doctor Will See Patient In The: Hospital Counseled Patient/Family Regarding: Studies Performed, Diagnosis - Disposition Disposition: HOSPITALIZED Disposition Time: 00:14 Condition: FAIR Forms: [facility] (Portuguese) - POA Present On Arrival: Poor Glycemic Control - Clinical Impression Clinical Impression: Heroin abuse, Opioid use disorder, severe, dependence, Depressive disorder, Drug abuse - Scribe Statement The provider has reviewed the documentation as recorded by the Scribe Teodoro Tan All medical record entries made by the Scribe were at my direction and personally dictated by me. I have reviewed the chart and agree that the record accurately reflects my personal performance of the history, physical exam, medical decision making, and the department course for this patient. I have also personally directed, reviewed, and agree with the discharge instructions and disposition. Decision To Admit - Pt Status Changed To: Hospital Disposition Of: Inpatient - Admit Certification Admit to Inpatient:: After my assessment, the patient will require hospitalization for at least two midnights. This is because of the severity of symptoms shown, intensity of services needed, and/or the medical risk in this patient being treated as an outpatient. - InPatient: Physician Admission Certification: I certify that this patient requires 2 or more midnights of care for the following reason:: After my assessment, the patient will require hospitalization for at least two midnights. This is because of the severity of symptoms shown, intensity of services needed, and/or the medical risk in this patient being treated as an outpatient. - . Bed Request Type: Psychiatry Admitting Physician: Tarik Robins Patient Diagnosis: Heroin abuse, Opioid use disorder, severe, dependence, Depressive disorder, Drug abuse
[2017-12-29 00:30] LABS: BASO # 0.1 K/uL (0.0-0.2); BASO % 0.9 % (0.0-2.0); EOS % 0.1 % (0.0-4.0); HEMOGLOBIN 14.9 g/dL (12.0-18.0); LYMPH # 1.6 K/uL (1.0-4.3); MEAN CELL VOLUME 94.8 fL (80.0-94.0); MEAN CORPUSCULAR HEMOGLOBIN 32.7 pg (27.0-31.0); MEAN CORPUSCULAR HGB CONC 34.5 g/dL (33.0-37.0); MEAN PLATELET VOLUME 7.5 fL (7.2-11.7); MONO # 0.6 K/uL (0.0-0.8); NEUT # 8.4 K/uL (1.8-7.0); RBC 4.56 Mil/uL (4.40-5.90); RED CELL DISTRIBUTION WIDTH 13.1 % (11.5-14.5); WHITE BLOOD COUNT 10.8 K/uL (4.8-10.8)
[2017-12-29 00:56] LABS: SQUAMOUS EPITHIAL < 1 /hpf (0-5); URINE BACTERIA OCC (<OCC); URINE BILIRUBIN NEGATIVE (NEGATIVE); URINE BLOOD NEGATIVE (NEGATIVE); URINE CLARITY Hazy (Clear); URINE GLUCOSE (UA) NORMAL (Normal); URINE LEUKOCYTE ESTERASE NEG Leu/uL (Negative); URINE PROTEIN 2+ mg/dL (NEGATIVE)
[2017-12-29 01:08] LABS: ALB/GLOB RATIO 1.1 (1.0-2.1); ALBUMIN 4.2 g/dL (3.5-5.0); ALT/SGPT 24 U/L (21-72); AST/SGOT 55 U/L (17-59); BLOOD UREA NITROGEN 18 mg/dL (9-20); CALCIUM 9.5 mg/dl (8.6-10.4); GFR AFRICAN-AMERICAN > 60; GFR NON-AFRICAN AMERICAN > 60
[2017-12-29 01:19] LABS: BARBITURATES, UR NEGATIVE (NEGATIVE); BENZODIAZEPINES, UR NEGATIVE (NEGATIVE); PHENCYCLIDINE, UR NEGATIVE (NEGATIVE)
[2017-12-29 01:35] LABS: URINE COLOR YELLOW (YELLOW)
[2017-12-29 01:47] LABS: OPIATES, UR POSITIVE (NEGATIVE)
--- NOTE | 2017-12-29 11:33 | PCM.BM ---
<Tammy Cuba - Last Filed: 12/29/17 11:32> Treatment Plan Problems - Problems identified on initial assessmt potential for opiate withdrawals Date Initiated: 12/29/17 Assessment reference: NA Status: Active potential for alcohol withdrawals Date Initiated: 12/29/17 Assessment reference: NA Status: Active Treatment assets and liabiliti Patient Assests: adapts well, cooperative, ADL independent, negotiates basic needs, cognitively intact Patient Liabilities: substance abuse - Milieu Protocol Maintain good personal hygiene: daily Encourage regular showers, daily Remind patient to perform daily oral care, daily Assist patient to perform ADL's Conduct patient checks and document Observation sheet: Q15 minutes Maintain personal safety: every shift Educate patient to report safety concerns to staff, every shift Monitor environment for contraband/sharps Medication safety: Monitor for expected outcome, potential side effects: every shift, Assess barriers to learning: every shift, Assess readiness for medication education: every shift <Tarik Robins - Last Filed: 12/31/17 16:56> - Diagnosis (1) Opioid use disorder, severe, dependence Status: Acute Interventions: 12/31/17 16:55 Educate regarding risks, benefits, side effects and alternatives of medications * Use Motivational Interviewing for abstinence * Use CBT for relapse prevention * Medication management for withdrawal symptoms * Encourage medication assisted treatment (2) Alcohol use disorder, severe, dependence Status: Acute Interventions: 12/31/17 16:56 Educate regarding risks, benefits, side effects and alternatives of medications * Use Motivational Interviewing for abstinence * Use CBT for relapse prevention * Medication management for withdrawal symptoms * Encourage medication assisted treatment (3) Cocaine use disorder, severe, dependence Status: Acute Interventions: 12/31/17 16:56 Educate regarding risks, benefits, side effects and alternatives of medications * Use Motivational Interviewing for abstinence * Use CBT for relapse prevention * Medication management for withdrawal symptoms * Encourage medication assisted treatment
[2017-12-30] MEDS ORDERED: Aluminum Hydroxide/Magnesium Hydroxide Susp (30 mL) PO PRN (10:54)
[2017-12-30] MEDS: Multiple Vitamins Tab PO SCH (11:54)
--- NOTE | 2017-12-30 20:35 | PCM.PSYCH ---
Initial Psychiatric Evaluation - Initial Psychiatric Evaluation Type of Admission: Voluntary Legal Status: Capacity Chief Complaint (in patient's own words): I need help for my heroin alcohol and cocaine use. History of Present Illness and Precipitating Events: Patient is a 47 years old, single, unemployed for last 6 years, on disability, male, who was admitted due to withdrawing from heroin, alcohol and cocaine. Heroin: Started at 28 years of age, increased gradually, currently he was using 30 bags daily, IV. Last used yesterday, 6 packs. History of one previous detox and one rehabilitation at [facility] but he left [facility] after one week. His longest period of abstinence was 12 years in the past. He also used methadone 2 days ago once. Alcohol: He started using alcohol 1 year ago, every day, 1/5 of fireball. His last drink was yesterday. Cocaine: Started at 24 years of age. Was using half gram daily, IV. Last used yesterday. Patient also smokes 10 cigarettes daily, refuses to take nicotine patch. Patient was born in [place], has high school graduation. Not working. His last job for 6 years ago, currently on disability. He is single and has 2 children 19 years old son and 12 years old daughter, who live with their mother. Patient lives with his cousin. His height is 6 feet 1 inches and weight is 150 pounds. Current Medications: Active Medications Generic Name Dose Route Start Last Admin Trade Name Freq PRN Reason Stop Dose Admin Al Hydrox/Mg Hydrox/Simethicone 30 ml 12/30/17 10:54 Maalox 30 Ml PO TID PRN Indigestion / Heartburn Chlordiazepoxide 50 mg 12/30/17 12:00 12/30/17 18:57 Librium PO 50 mg Q6 PRIMITIVO Administration Clonidine HCl 0.1 mg 12/30/17 10:54 Catapres PO Q8 PRN COWS Score More or Equal to 5 Dicyclomine HCl 10 mg 12/30/17 11:00 Bentyl PO Q6 PRN Abdominal Cramps Folic Acid 1 mg 12/30/17 11:00 12/30/17 11:54 Folic Acid PO Not Given DAILY PRIMITIVO Gabapentin 400 mg 12/30/17 14:00 12/30/17 18:57 Neurontin PO 400 mg TID PRIMITIVO Administration Hydroxyzine HCl 25 mg 12/30/17 11:01 Atarax PO Q6 PRN Anxiety Ibuprofen 400 mg 12/30/17 10:56 Motrin Tab PO Q6 PRN Pain, moderate (4-7) Loperamide HCl 2 mg 12/30/17 10:54 Imodium PO Q8 PRN Diarrhea Methadone HCl 10 mg 12/31/17 10:00 Methadone PO 01/02/18 09:59 Q24H PRIMITIVO Taper Multivitamins 1 tab 12/30/17 11:00 12/30/17 11:54 Hexavitamin PO Not Given DAILY PRIMITIVO Ondansetron HCl 4 mg 12/30/17 10:54 Zofran Tab PO Q8 PRN Nausea/Vomiting Thiamine HCl 100 mg 12/30/17 11:00 12/30/17 11:54 Vitamin B1 Tab PO Not Given DAILY PRIMITIVO Trazodone HCl 50 mg 12/30/17 10:53 Desyrel PO HS PRN Insomnia Past Psychiatric History - Past Psychiatric History Previous Treatment History: Inpatient History of Abuse: None reported History of ETOH/Drug Use: CC and HPI History of Family Illness: Reported history of cannabis use in father. Pertinent Medical Hx (Current Medical&Sleep Prob, Allergies): Allergies Allergy/AdvReac Type Severity Reaction Status Date / Time shrimp Allergy Intermediate ANGIOEDEMA Verified 12/28/17 23:42 hydrOXYzine HCl [Atarax] 50 mg PO BID PRN #30 tab 11/06/17 traZODone [Desyrel] 100 mg PO HS PRN #30 tab 11/06/17 Asthma Review of Systems - Psychiatric Psychiatric: As Per HPI Mental Status Examination - Personal Presentation Personal Presentation: Looks stated age - Affect Affect: Depressed - Motor Activity Motor Activity: Calm - Reliability in Providing Information Reliability in Providing Information: Fair - Speech Speech: Organized - Mood Mood: Depressed - Formal Thought Process Formal Thought Process: No Impairment - Hallucinations/Delusions Hallucinations: Other (None reported) Delusions: Other - Obsessions/Compulsions Obsessions: None Compulsions: None - Cognitive Functions Orientation: Person, Place, Situation, Time Sensorium: Alert Attention/Concentration: Attentive Abstract Thinking: [place] Estimate of Intelligence: Average Judgement: Intact, as evidence by: Insight regarding need for hospitalization Memory: Recent intact, as evidence by: 3/3 object recall, Remote intact, as evidenced by: Ability to recall historical events - Risk Risk: Withdrawal, Diminished functioning - Strength & Assets Inventory Strength & Assets Inventory: Education, Cooperative - Limitations Limitations: Other DSM 5 DX - DSM 5 DSM 5 Diagnosis: Opiate use disorder severe. Alcohol use disorder severe. Cocaine use disorder severe. - Recommended/Plan of Treatment Treatment Recommendations and Plan of Treatment: Patient education. Supportive therapy. CBT for relapse prevention. HI for abstinence. We will start methadone taper for opiate withdrawal symptoms. We'll start Librium taper for alcohol withdrawal symptoms. Other when necessary medications. Projected ELOS: 4-5 days Discharge Plan and Discharge Criteria: Patient wants to go to [facility] for follow-up care after discharge from the hospital. - Smoking Cessation Smoking Cessation Initiated: No Reason for not providing: Patient refused
[2017-12-31 06:32] VITALS: RESP 18
[2017-12-31] MEDS: Multiple Vitamins Tab PO SCH (09:14)
--- NOTE | 2017-12-31 17:10 | PCM.PYCHPN ---
Psychiatric Progress Note - Psychiatric Progress Note Patient seen today, length of contact: 15 minutes Patient Chief Complaint: I'm feeling better. Problems Identified/Issues Discussed: Patient seen, chart reviewed, case discussed with the staff. Issues related to illness and treatment were discussed with the patient. Reported compliant with treatment with no adverse affects. Tolerating treatment very well. Reported feeling little better with few adverse affects. Aftercare discussed with the patient. At the time of evaluation, patient was awake alert oriented 3, had no delusions , no auditory visual hallucinations, no suicidal ideations or homicidal ideations. Medical Problems: Asthma Diagnostic Results: Reviewed DSM 5 Symptoms Update: Some improvement with treatment Medication Change: No Medical Record Reviewed: Yes Mental Status Examination - Cognitive Function Orientation: Person, Place, Situation, Time Memory: Intact Attention: WNL Concentration: WNL Association: WNL Fund of Knowledge: [facility] Decription of patient's judgement and insights: Fair - Mood Mood: Depressed (Less than before) - Affect Affect: Depressed - Speech Speech: Appropriate - Formal Thought Process Formal Thought Process: No Impairment Psychotic Thoughts and Behaviors: None - Suicidal Ideation Suicidal Ideation: No - Homicidal Ideation Homicidal Ideation: No Goal/Treatment Plan - Goal/Treatment Plan Need for Continued Stay: Remain at risks for inpatient hospitalization, Discharge may exacerbated symptoms, Severe functional impairment Progress Toward Problem(s) and Goals/Treatment Plan: Patient education. Supportive therapy. CBT for relapse prevention. [place] for abstinence. Continue treatment as before. Patient wants to go to [facility] for follow-up care after discharge from the hospital. Estimated Date of D/C: 01/02/18 - Smoking Cessation Smoking Cessation Initiated: No Reason for not providing: Patient refused
[2018-01-01] MEDS: Multiple Vitamins Tab PO SCH (09:33)
--- NOTE | 2018-01-01 12:49 | PCM.PYCHPN ---
Psychiatric Progress Note - Psychiatric Progress Note Patient seen today, length of contact: 15 minutes Patient Chief Complaint: "I'm still not well" Problems Identified/Issues Discussed: The pt is seen, chart reviewed, case discussed with staff. The pt is compliant with medications and reports no side-effects. Symptoms are improving but needs more time to stabilize. After care discussed, support and psychoeducation given. Medication Change: Yes (Detox changes daily) Medical Record Reviewed: Yes Mental Status Examination - Cognitive Function Orientation: Person, Place, Situation, Time Memory: Intact Attention: WNL Concentration: Poor Association: WNL Fund of Knowledge: Poor - Mood Mood: Depressed, Anxious - Affect Affect: Constricted - Speech Speech: Appropriate - Formal Thought Process Formal Thought Process: No Impairment - Suicidal Ideation Suicidal Ideation: No - Homicidal Ideation Homicidal Ideation: No Goal/Treatment Plan - Goal/Treatment Plan Need for Continued Stay: Remain at risks for inpatient hospitalization, Discharge may exacerbated symptoms, Severe functional impairment Progress Toward Problem(s) and Goals/Treatment Plan: Continue medications Support and psychoeducation daily Attend groups and activities daily After care planning by counselor Estimated Date of D/C: 01/02/18
--- NOTE | 2018-01-02 08:42 | PCM.PYCHDC ---
Mental Status Examination - Mental Status Examination Orientation: Person, Place, Situation, Time Memory: Intact Mood: Depressed, Anxious Affect: Constricted, Depressed Speech: Appropriate Attention: WNL Concentration: WNL Association: WNL Fund of Knowledge: WNL Formal Thought Process: No Impairment Suicidal Ideation: No Current Homicidal Ideation?: No Discharge Summary - Discharge Note Reason for Hospitalization: Seeking detox for opiate, alcohol, and cocaine use Consultations:: List each consultation separately and include: 1. Reason for request. 2. Findings. 3. Follow-up Summary of Hospital Course include:: 1. Description of specific treatment plan utilized for patients during their course of treatmen. 2. Summarize the time- course for resolution of acute symptoms and/or regressed behaviors. 3. Describe issues identified and worked on during hospitalization. 4. Describe medication utilized. 5. Describe medical problems identified and treated. 6. Reassessment of suicide risk Summary of Hospital Course: The pt is seen, chart reviewed, case discussed. On admission: Patient is a 47 years old, single, unemployed for last 6 years, on disability, male, who was admitted due to withdrawing from heroin, alcohol and cocaine. Heroin: Started at 28 years of age, increased gradually, currently he was using 30 bags daily, IV. Last used yesterday, 6 packs. History of one previous detox and one rehabilitation at [facility] but he [id number] after one week. His longest period of abstinence was 12 years in the past. He also used methadone 2 days ago once. Alcohol: He started using alcohol 1 year ago, every day, 1/5 of fireball. His last drink was yesterday. Cocaine: Started at 24 years of age. Was using half gram daily, IV. Last used yesterday. Patient also smokes 10 cigarettes daily, refuses to take nicotine patch. Patient was born in [place], has high school graduation. Not working. His last job for 6 years ago, currently on disability. He is single and has 2 children 19 years old son and 12 years old daughter, who live with their mother. Patient lives with his cousin. His height is 6 feet 1 inches and weight is 150 pounds. Hospital Course: The pt was admitted and started on treatment with psychotherapy, support, psychoeducation and medications. NE and CBT used. The pt attended groups and activities, as well as milieu therapy. All the risks and benefits of medications are discussed and the patient understood and agreed. The pt improved with the treatments provided. However, he was unmotivated and help-rejecting. He was more interested in trying to stay-in "until Friday" etc. than actively participating in rehab applications. He will attend [facility] but wait-listed. He refused others. Will go to custodial. - Final Diagnosis (DSM 5) Condition upon Discharge: IMPROVED DSM 5: Opioid use d/o - severe Cocaine use d/o- severe Nicotine use d/o - severe Disposition: HOME/ ROUTINE Follow-up Treatment Plan: Continue below medications after discharge. Follow after care plan as discussed. Use relapse prevention skills Return to ER or call 911 if suicidal, homicidal or symptoms relapse. Stay away from stress, alcohol and drugs. See primary doctor regularly and get labs. Prescriptions/Medication Reconciliation: Gabapentin [Neurontin] 400 mg PO TID #90 cap hydrOXYzine HCl [Atarax] 25 mg PO BID PRN #60 tab PRN Reason: Anxiety traZODone [Desyrel] 100 mg PO HS #30 tab
[2018-01-02 09:18] VITALS: BP 116/80; PULSE 73; TEMP 98.7; O2SAT 97
[2018-01-02] MEDS: Multiple Vitamins Tab PO SCH (09:53)
== END 2018-01-02 12:38 | disposition home or self-care (01) | DRG 897 ==
LOC: C.ER 23:34 → C.9E 12-29 03:36 → C.7D 12-29 10:58 → C.9E 12-29 11:09 → C.7D 12-29 11:15
DX: F11.20 Opioid dependence, uncomplicated (principal); F14.20 Cocaine dependence, uncomplicated; F17.210 Nicotine dependence, cigarettes, uncomplicated; F31.9 Bipolar disorder, unspecified; J45.909 Unspecified asthma, uncomplicated; M54.9 Dorsalgia, unspecified; F41.9 Anxiety disorder, unspecified; F10.20 Alcohol dependence, uncomplicated

== ENCOUNTER 2018-08-12 13:06 | Inpatient (IN) | payer OTHER ==
--- NOTE | 2018-08-12 13:42 | C.PDOC ---
History Of Present Illness 48 year old male with history of cocaine, heroin, and alcohol abuse presents to the ED requesting detoxification from alcohol and opiates. Reports depression. Denies any SI/HI, auditory or visual hallucinations. Time Seen by Provider: 08/12/18 13:25 Chief Complaint (Nursing): Psychiatric Evaluation History Per: Patient History/Exam Limitations: no limitations Onset/Duration Of Symptoms: Days Current Symptoms Are (Timing): Still Present Suicide/Self Injury Attempted (Context): None Modifying Factor(s): Alcohol, Narcotics, Cocaine Associated Symptoms: Depression. denies: Suicidal Thoughts, Suicidal Plan Past Medical History Reviewed: Historical Data, Nursing Documentation, Vital Signs Vital Signs: Last Vital Signs Temp 98.1 F 08/12/18 13:11 Pulse 90 08/12/18 13:11 Resp 16 08/12/18 13:11 BP 130/86 08/12/18 13:11 Pulse Ox 98 08/12/18 13:11 - Medical History PMH: Anxiety, Asthma, Back Problems (Back Pain), Bipolar Disorder, Depression, Hepatitis (C), HTN Denies: Diabetes, HIV (Tested Negative), Seizures, Sexually Transmitted Disease Surgical History: No Surg Hx - [facility] Procedures DETOXIFICATION SERVICES FOR SUBSTANCE ABUSE TREATMENT (11/01/17) INDIV PSYCHOTHERAPY FOR SUBSTANCE ABUSE, PSYCHOEDUCATION (11/01/17) MEDICATION MANAGEMENT (11/01/17) PHARMACOTHERAPY FOR SUBSTANCE ABUSE, OTH REPLACE MED (11/01/17) Family History: States: No Known Family Hx - Social History Hx Alcohol Use: Yes Hx Substance Use: Yes (opiates) - Immunization History Hx Tetanus Toxoid Vaccination: Yes Hx Influenza Vaccination: Yes Hx Pneumococcal Vaccination: No Review Of Systems Except As Marked, All Systems Reviewed And Found Negative. Constitutional: Negative for: Fever, Chills Cardiovascular: Negative for: Chest Pain Respiratory: Negative for: Shortness of Breath Gastrointestinal: Negative for: Nausea, Vomiting, Abdominal Pain, Diarrhea Psych: Positive for: Depression. Negative for: Suicidal ideation Physical Exam - Physical Exam Appears: Non-toxic, No Acute Distress, Other (thin and tall black male ) Skin: Warm, Dry, No Rash Head: Normacephalic Eye(s): bilateral: Normal Inspection Nose: Normal Oral Mucosa: Moist Neck: Supple Chest: Symmetrical Cardiovascular: Rhythm Regular Respiratory: Normal Breath Sounds, No Rales, No Rhonchi, No Wheezing Neurological/Psych: Oriented x3, Normal Speech Gait: Steady ED Course And Treatment - Laboratory Results Result Diagrams: 08/12/18 13:57 08/12/18 13:57 Lab Interpretation: Abnormal (etoh 13 (low), tox + cocaine/opiates) O2 Sat by Pulse Oximetry: 98 (RA) Pulse Ox Interpretation: Normal Reevaluation Time: 15:41 Reassessment Condition: Improved Medical Decision Making Medical Decision Making: Plan - Bloodwork - Crisis Evaluation Patient evaluated by Crisis. Will admit for detoxification. opiate, alcohol, cocaine abuse depression, ? HIV hx, no apparent AIDS s/s. Disposition Doctor Will See Patient In The: Hospital Counseled Patient/Family Regarding: Studies Performed, Diagnosis - Disposition Disposition: HOSPITALIZED Disposition Time: 15:41 Condition: GOOD - Clinical Impression Clinical Impression: Opioid use disorder, severe, dependence, Depression, Cocaine abuse, Alcohol abuse - Scribe Statement The provider has reviewed the documentation as recorded by the Scribe Ambreen Bee All medical record entries made by the Tawnyibe were at my direction and personally dictated by me. I have reviewed the chart and agree that the record accurately reflects my personal performance of the history, physical exam, medical decision making, and the department course for this patient. I have also personally directed, reviewed, and agree with the discharge instructions and disposition.
[2018-08-12 14:06] LABS: BASO % 0.5 % (0.0-2.0); EOS # 0.1 K/uL (0.0-0.7); EOS % 2.5 % (0.0-4.0); HEMOGLOBIN 14.3 g/dL (12.0-18.0); LYMPH # 1.5 K/uL (1.0-4.3); LYMPH % 25.8 % (20.0-40.0); MEAN CORPUSCULAR HEMOGLOBIN 32.8 pg (27.0-31.0); MEAN CORPUSCULAR HGB CONC 33.7 g/dL (33.0-37.0); MEAN PLATELET VOLUME 7.3 fL (7.2-11.7); MONO # 0.5 K/uL (0.0-0.8); NEUT # 3.7 K/uL (1.8-7.0); NEUT % 63.2 % (50.0-75.0); RBC 4.36 Mil/uL (4.40-5.90); RED CELL DISTRIBUTION WIDTH 12.5 % (11.5-14.5); WHITE BLOOD COUNT 5.9 K/uL (4.8-10.8)
[2018-08-12 14:09] LABS: MEAN CELL VOLUME 97.3 fL (80.0-94.0)
[2018-08-12 14:15] LABS: ALB/GLOB RATIO 1.3 (1.0-2.1); ALBUMIN 4.6 g/dL (3.5-5.0); ALT/SGPT 83 U/L (21-72); AST/SGOT 123 U/L (17-59); BLOOD UREA NITROGEN 18 mg/dL (9-20); CALCIUM 9.4 mg/dl (8.6-10.4); GFR NON-AFRICAN AMERICAN > 60
[2018-08-12 14:22] LABS: URINE BILIRUBIN 1+ (NEGATIVE); URINE BLOOD NEGATIVE (NEGATIVE); URINE CLARITY Clear (Clear); URINE COLOR Amber (YELLOW); URINE GLUCOSE (UA) NORMAL (Normal); URINE LEUKOCYTE ESTERASE NEG Leu/uL (Negative); URINE PROTEIN 1+ mg/dL (NEGATIVE)
[2018-08-12 15:06] LABS: BARBITURATES, UR NEGATIVE (NEGATIVE); BENZODIAZEPINES, UR NEGATIVE (NEGATIVE); PHENCYCLIDINE, UR NEGATIVE (NEGATIVE)
[2018-08-12 15:40] LABS: OPIATES, UR POSITIVE (NEGATIVE)
[2018-08-12] MEDS ORDERED: Aluminum Hydroxide/Magnesium Hydroxide Susp (30 mL) PO PRN (17:43)
[2018-08-12 17:50] VITALS: O2SAT 98
--- NOTE | 2018-08-12 18:09 | PCM.BM ---
<Rosy Mcneil - Last Filed: 08/12/18 18:04> Treatment Plan Problems - Problems identified on initial assessmt Suicidal ideation Date Initiated: 08/12/18 Time Initiated: 17:00 Assessment reference: NA Status: Active Treatment assets and liabiliti Patient Assests: adapts well, cooperative, ADL independent, negotiates basic needs, cognitively intact <LuciusJosiane diallocathi - Last Filed: 08/13/18 14:21> - Diagnosis (1) Depression Status: Acute Interventions: 08/13/18 14:21 * Assess/adjust medications daily and /or as needed * See patient on an individual basis 7x/week to assess symptoms of depression * Monitor for side effects & effectiveness of medications * (2) Opioid use disorder, severe, dependence Status: Acute Interventions: 08/13/18 14:21 * Assess 7x/week regarding severity of withdrawal * Educate regarding risks, benefits, side effects and alternatives of medications * Use Motivational Interviewing for abstinence * Use CBT for relapse prevention * Medication management for withdrawal symptoms * Encourage medication assisted treatment *
--- NOTE | 2018-08-13 10:40 | PCM.PSYCH ---
Initial Psychiatric Evaluation - Initial Psychiatric Evaluation Type of Admission: Voluntary Legal Status: Capacity Chief Complaint (in patient's own words): "I'm depressed" History of Present Illness and Precipitating Events: This is a 48 year old male who lives alone in [place]. He is single with two children living in [place] and is unemployed. he is known from detox and [facility]E admissions, He is here for depression, SI and a plan to "walk into highway." He denies SI now but still feels depressed. Patient again reports heroin use; average use 10-20 bags via snorting. He reports withdrawal symptoms of abdominal pain, nausea, vomiting. He also reports cocaine use via snorting. He denies any Xanax/marijuana use. He reports alcohol use, about 1 pint daily, but denies any withdrawal symptoms at this time. He reports tobacco use at 1 ppd. He denies any auditory or visual hallucinations. No avelino Past medical history: asthma Past psychiatric history: One admission with MDD to Family psychiatric history: denies Family substance use: denies Current Medications: Active Medications Generic Name Dose Route Start Last Admin Trade Name Freq PRN Reason Stop Dose Admin Al Hydrox/Mg Hydrox/Simethicone 30 ml 08/12/18 17:43 Maalox 30 Ml PO TID PRN Indigestion / Heartburn Clonidine HCl 0.1 mg 08/12/18 17:43 Catapres PO Q4 PRN COWS Score More or Equal to 5 Hydroxyzine HCl 50 mg 08/12/18 17:43 Atarax PO Q6H PRN Anxiety Ibuprofen 600 mg 08/12/18 17:43 Motrin Tab PO Q6H PRN Pain, moderate (4-7) Loperamide HCl 2 mg 08/12/18 17:43 Imodium PO Q8 PRN Diarrhea Mirtazapine 15 mg 08/12/18 22:00 08/12/18 21:30 Remeron PO 15 mg HS PRIMITIVO Administration Ondansetron HCl 4 mg 08/12/18 17:43 Zofran Tab PO Q8 PRN Nausea/Vomiting Pneumococcal Polyvalent Vaccine 0.5 ml 08/15/18 10:00 Pneumovax 23 Vaccine IM 08/15/18 10:01 .ONCE ONE Trazodone HCl 100 mg 08/12/18 17:43 08/12/18 21:13 Desyrel PO 100 mg HS PRN Administration Insomnia Past Psychiatric History - Past Psychiatric History Previous Treatment History: Inpatient Pertinent Medical Hx (Current Medical&Sleep Prob, Allergies): Allergies Allergy/AdvReac Type Severity Reaction Status Date / Time shrimp Allergy Intermediate ANGIOEDEMA Verified 08/12/18 13:13 No Known Home Med 08/12/18 Review of Systems - Psychiatric Psychiatric: Abnormal Sleep Pattern, Anhedonia, Anxiety, Auditory Hallucinations, Depression, Difficulty Concentrating, Mood Swings. absent: Hallucinations, Homicidal Ideation, Irritability, Suicidal Ideation Mental Status Examination - Personal Presentation Personal Presentation: Looks stated age - Affect Affect: Constricted - Motor Activity Motor Activity: Calm - Reliability in Providing Information Reliability in Providing Information: Good - Speech Speech: Organized - Mood Mood: Depressed, Anxious - Formal Thought Process Formal Thought Process: No Impairment - Cognitive Functions Orientation: Person, Place, Situation, Time Sensorium: Alert Attention/Concentration: Easily distracted Estimate of Intelligence: Average Judgement: Intact, as evidence by: Insight regarding need for hospitalization Memory: Recent intact, as evidence by: Ability to recall events of the day, Remote intact, as evidenced by: Abilit to recall sig. life events - Risk Risk: Withdrawal, Diminished functioning - Strength & Assets Inventory Strength & Assets Inventory: Cooperative - Limitations Limitations: Other DSM 5 DX - DSM 5 DSM 5 Diagnosis: Major depressive disorder, recurrent, severe w/o psychosis Opioid use disorder severe Opioid withdrawal Cocaine use disorder severe Alcohol use disorder severe Tobacco use disorder severe - Recommended/Plan of Treatment Treatment Recommendations and Plan of Treatment: Methadone detox Prozac and Remeron for depression Gabapentin for augmentation As needed medications Attend groups and activities Supportive therapy and psychoeducation [place] for abstinence CBT for relapse prevention Encourage MAT Refer to rehab or IOP, and self-help groups. Smoking cessation with [place] Nicotine patch if requested 33 min Projected ELOS: 4-5 days - Smoking Cessation Smoking Cessation Initiated: Yes
[2018-08-13] MEDS: Multiple Vitamins Tab PO SCH (11:53)
[2018-08-14] MEDS: Multiple Vitamins Tab PO SCH (10:29)
--- NOTE | 2018-08-14 12:08 | PCM.PYCHPN ---
Psychiatric Progress Note - Psychiatric Progress Note Patient seen today, length of contact: 17 min Patient Chief Complaint: "I'm withdrawing" Problems Identified/Issues Discussed: The pt is seen, chart reviewed, case discussed with staff. The pt is compliant with medications and reports no side-effects. Symptoms are improving but needs more time to stabilize. . Support given, psycho-education provided. After care discussed. Medication Change: Yes (meds adjusted daily) Medical Record Reviewed: Yes Mental Status Examination - Cognitive Function Orientation: Person, Place, Situation, Time Memory: Impaired Attention: Poor Concentration: Poor Association: WNL Fund of Knowledge: WNL - Mood Mood: Depressed, Anxious - Affect Affect: Constricted - Speech Speech: Appropriate - Formal Thought Process Formal Thought Process: No Impairment - Suicidal Ideation Suicidal Ideation: No - Homicidal Ideation Homicidal Ideation: No Goal/Treatment Plan - Goal/Treatment Plan Need for Continued Stay: Severe depression anxiety, Discharge may exacerbated symptoms, Severe functional impairment Progress Toward Problem(s) and Goals/Treatment Plan: Methadone detox Prozac and Remeron for depression Gabapentin for augmentation As needed medications Attend groups and activities Supportive therapy and psychoeducation [place] for abstinence CBT for relapse prevention Encourage MAT Refer to rehab or IOP, and self-help groups. Smoking cessation with [place] Nicotine patch if requested
[2018-08-15] MEDS: Multiple Vitamins Tab PO SCH (09:42)
[2018-08-15] MEDS ORDERED: Pneumococcal 23-Valent Vaccine IM ONE (10:00)
--- NOTE | 2018-08-15 13:16 | PCM.PYCHPN ---
Psychiatric Progress Note - Psychiatric Progress Note Patient seen today, length of contact: 15 min Patient Chief Complaint: "I'm not well yet" Problems Identified/Issues Discussed: The pt is seen, chart reviewed, case discussed with staff. Support and psychoeducation given, CBT and DC used briefly No new symptoms reported, improving slowly and needs more time No SEs from medications, risks discussed. After care discussed Medication Change: Yes (meds change daily) Medical Record Reviewed: Yes Mental Status Examination - Cognitive Function Orientation: Person, Place, Situation, Time Memory: Intact Attention: Poor Concentration: Poor Association: WNL Fund of Knowledge: WNL - Mood Mood: Depressed, Anxious - Affect Affect: Blunted - Speech Speech: Soft - Formal Thought Process Formal Thought Process: No Impairment - Suicidal Ideation Suicidal Ideation: No - Homicidal Ideation Homicidal Ideation: No Goal/Treatment Plan - Goal/Treatment Plan Need for Continued Stay: Discharge may exacerbated symptoms, Severe functional impairment Progress Toward Problem(s) and Goals/Treatment Plan: Methadone detox Prozac and Remeron for depression Gabapentin for augmentation As needed medications Attend groups and activities Supportive therapy and psychoeducation [place] for abstinence CBT for relapse prevention Encourage MAT Refer to rehab or IOP, and self-help groups. Smoking cessation with [place] Nicotine patch if requested
[2018-08-16] MEDS: Multiple Vitamins Tab PO SCH (09:24)
--- NOTE | 2018-08-16 23:41 | PCM.PYCHPN ---
Psychiatric Progress Note - Psychiatric Progress Note Patient seen today, length of contact: 18 min Patient Chief Complaint: "I'm still tired, have no appetite" Problems Identified/Issues Discussed: The pt is seen, chart reviewed, case discussed with staff. Support and psychoeducation given, OR used briefly No SEs from medications, risks discussed. He is more withdrawn and fells depressed still Appetite is very low, sleep is "hard" Not suicidal and agrees to follow his safety plan After care discussed Medication Change: Yes (meds change daily) Medical Record Reviewed: Yes Mental Status Examination - Cognitive Function Orientation: Person, Place, Situation, Time Memory: Intact Attention: Poor Concentration: Poor Association: WNL Fund of Knowledge: WNL - Mood Mood: Depressed, Anxious - Affect Affect: Blunted - Speech Speech: Soft - Formal Thought Process Formal Thought Process: No Impairment - Suicidal Ideation Suicidal Ideation: No - Homicidal Ideation Homicidal Ideation: No Goal/Treatment Plan - Goal/Treatment Plan Need for Continued Stay: Discharge may exacerbated symptoms, Severe functional impairment Progress Toward Problem(s) and Goals/Treatment Plan: Methadone detox Lexapro and Remeron for depression Prozac discontinued due to low appetite Periactin added Gabapentin for augmentation As needed medications Attend groups and activities Supportive therapy and psychoeducation [place] for abstinence CBT for relapse prevention Encourage MAT Refer to rehab or IOP, and self-help groups. Smoking cessation with OR Nicotine patch if requested
[2018-08-17 06:45] VITALS: RESP 20
[2018-08-17] MEDS: Multiple Vitamins Tab PO SCH (10:09)
--- NOTE | 2018-08-17 13:23 | PCM.PYCHPN ---
Psychiatric Progress Note - Psychiatric Progress Note Patient seen today, length of contact: 16 min Patient Chief Complaint: "I still can't sleep, I have restless legs" Problems Identified/Issues Discussed: The pt is seen, chart reviewed, case discussed with staff. Support and psychoeducation given No SEs from medications, except for the restless leg from Trazodone, risks discussed. He is less withdrawn and feels slightly less depressed. No voices today and denies SI/SP Appetite is still low, sleep is "bad" After care discussed Medication Change: Yes (meds change daily) Medical Record Reviewed: Yes Mental Status Examination - Cognitive Function Orientation: Person, Place, Situation, Time Memory: Intact Attention: Poor Concentration: Poor Association: WNL Fund of Knowledge: WNL - Mood Mood: Depressed, Anxious - Affect Affect: Blunted - Speech Speech: Soft - Formal Thought Process Formal Thought Process: No Impairment - Suicidal Ideation Suicidal Ideation: No - Homicidal Ideation Homicidal Ideation: No Goal/Treatment Plan - Goal/Treatment Plan Need for Continued Stay: Discharge may exacerbated symptoms, Severe functional impairment Progress Toward Problem(s) and Goals/Treatment Plan: Methadone detox Lexapro and Remeron for depression Prozac discontinued due to low appetite Periactin added seroquel added Gabapentin for augmentation As needed medications Attend groups and activities Supportive therapy and psychoeducation [place] for abstinence CBT for relapse prevention Encourage MAT Refer to rehab or IOP, and self-help groups. Smoking cessation with [place] Nicotine patch if requested
[2018-08-18 06:59] VITALS: BP 148/86; PULSE 80; TEMP 98.9
[2018-08-18] MEDS: Multiple Vitamins Tab PO SCH (09:25)
--- NOTE | 2018-08-18 11:14 | PCM.PYCHPN ---
Psychiatric Progress Note - Psychiatric Progress Note Patient seen today, length of contact: 16 min Medication Change: Yes (meds change daily) Medical Record Reviewed: Yes Mental Status Examination - Cognitive Function Orientation: Person, Place, Situation, Time Memory: Intact Attention: Poor Concentration: Poor Association: WNL Fund of Knowledge: WNL - Mood Mood: Depressed, Anxious - Affect Affect: Blunted - Speech Speech: Soft - Formal Thought Process Formal Thought Process: No Impairment - Suicidal Ideation Suicidal Ideation: No - Homicidal Ideation Homicidal Ideation: No Goal/Treatment Plan - Goal/Treatment Plan Need for Continued Stay: Discharge may exacerbated symptoms, Severe functional impairment
--- NOTE | 2018-08-18 12:00 | PCM.PYCHDC ---
Mental Status Examination - Mental Status Examination Orientation: Person, Place, Situation, Time Memory: Intact Mood: Neutral Affect: Constricted Speech: Soft Attention: WNL Concentration: WNL Association: WNL Fund of Knowledge: WNL Formal Thought Process: No Impairment Description of patient's judgement and insight: good, fair Psychotic Thoughts and Behaviors: denies any AVH Suicidal Ideation: No Current Homicidal Ideation?: No Discharge Summary - Discharge Note Reason for Hospitalization: This is a 48 year old male who lives alone in [place]. He is single with two children living in [place] and is unemployed. he is known from detox and 5E admissions, He is here for depression, SI and a plan to "walk into highway." He denies SI now but still feels depressed. Patient again reports heroin use; average use 10-20 bags via snorting. He reports withdrawal symptoms of abdominal pain, nausea, vomiting. He also reports cocaine use via snorting. He denies any Xanax/marijuana use. He reports alcohol use, about 1 pint daily, but denies any withdrawal symptoms at this time. He reports tobacco use at 1 ppd. He denies any auditory or visual hallucinations. No avelino Past medical history: asthma Past psychiatric history: One admission with MDD to Family psychiatric history: denies Family substance use: denies Consultations:: List each consultation separately and include: 1. Reason for request. 2. Findings. 3. Follow-up Summary of Hospital Course include:: 1. Description of specific treatment plan utilized for patients during their course of treatmen. 2. Summarize the time- course for resolution of acute symptoms and/or regressed behaviors. 3. Describe issues identified and worked on during hospitalization. 4. Describe medication utilized. 5. Describe medical problems identified and treated. 6. Reassessment of suicide risk - Final Diagnosis (DSM 5) Condition upon Discharge: GOOD DSM 5: Major depressive disorder, recurrent, severe w/o psychosis Opioid use disorder severe Opioid withdrawal Cocaine use disorder severe Alcohol use disorder severe Tobacco use disorder severe Disposition: HOME/ ROUTINE Prescriptions/Medication Reconciliation: Escitalopram [Lexapro] 10 mg PO DAILY #30 tab Gabapentin [Neurontin] 300 mg PO BID #60 cap Mirtazapine [Remeron] 30 mg PO HS #30 tab QUEtiapine [Seroquel] 100 mg PO HS #30 tab traZODone [Desyrel] 100 mg PO HS PRN #30 tab PRN Reason: Insomnia
== END 2018-08-18 12:15 | disposition home or self-care (01) | DRG 897 ==
LOC: C.ER 13:06 → C.5E 15:42
PROVIDERS: ADMIT Psychiatry & Neurology Psychiatry; ATTEND Psychiatry & Neurology Psychiatry
PROC: HZ2ZZZZ Detoxification Services for Substance Abuse Treatment (ICD-10-PCS; principal; 2018-08-12)
DX: F11.23 Opioid dependence with withdrawal (principal); F14.20 Cocaine dependence, uncomplicated; F33.2 Major depressive disorder, recurrent severe without psychotic features; F10.20 Alcohol dependence, uncomplicated; I10 Essential (primary) hypertension; J45.909 Unspecified asthma, uncomplicated; F17.210 Nicotine dependence, cigarettes, uncomplicated

== ENCOUNTER 2018-12-18 21:13 | Inpatient (IN) | payer OTHER ==
[2018-12-18 22:04] LABS: BASO # 0.1 K/uL (0.0-0.2); BASO % 1.4 % (0.0-2.0); EOS # 0.2 K/uL (0.0-0.7); EOS % 2.4 % (0.0-4.0); HEMOGLOBIN 13.6 g/dL (12.0-18.0); LYMPH # 2.7 K/uL (1.0-4.3); MEAN CELL VOLUME 95.6 fL (80.0-94.0); MEAN CORPUSCULAR HEMOGLOBIN 32.7 pg (27.0-31.0); MEAN CORPUSCULAR HGB CONC 34.2 g/dL (33.0-37.0); MEAN PLATELET VOLUME 7.2 fL (7.2-11.7); MONO # 0.6 K/uL (0.0-0.8); MONO % 9.1 % (0.0-10.0); NEUT # 3.3 K/uL (1.8-7.0); NEUT % 48.1 % (50.0-75.0); RBC 4.15 Mil/uL (4.40-5.90); WHITE BLOOD COUNT 6.8 K/uL (4.8-10.8)
[2018-12-18 22:17] LABS: ALB/GLOB RATIO 1.4 (1.0-2.1); ALBUMIN 4.4 g/dL (3.5-5.0); ALT/SGPT 48 U/L (21-72); AST/SGOT 67 U/L (17-59); BLOOD UREA NITROGEN 18 mg/dL (9-20); GFR NON-AFRICAN AMERICAN > 60
[2018-12-18 22:22] LABS: BARBITURATES, UR NEGATIVE (NEGATIVE); BENZODIAZEPINES, UR NEGATIVE (NEGATIVE); PHENCYCLIDINE, UR NEGATIVE (NEGATIVE)
[2018-12-18 22:25] LABS: OPIATES, UR POSITIVE (NEGATIVE)
[2018-12-18 22:26] LABS: SPERM URINE MANY /hpf; URINE BILIRUBIN 1+ (NEGATIVE); URINE BLOOD NEGATIVE (NEGATIVE); URINE CLARITY Hazy (Clear); URINE COLOR Amber (YELLOW); URINE GLUCOSE (UA) NORMAL (Normal); URINE HYALINE CAST 0-2 /lpf (0-2); URINE LEUKOCYTE ESTERASE NEG Leu/uL (Negative); URINE PROTEIN NEGATIVE (NEGATIVE)
--- NOTE | 2018-12-18 23:11 | C.PDOC ---
History Of Present Illness 48 year old male presents as a prescreen for detox from heroin, cocaine, and ETOH. No medical complaints at this time. Time Seen by Provider: 12/18/18 21:55 Chief Complaint (Nursing): Substance Abuse History Per: Patient History/Exam Limitations: no limitations Modifying Factor(s): Alcohol, Cocaine, Other (Heroin) Involuntary Hold By: None Past Medical History Reviewed: Historical Data, Nursing Documentation, Vital Signs Vital Signs: Last Vital Signs Temp 98.5 F 12/18/18 21:20 Pulse 89 12/18/18 21:20 Resp 20 12/18/18 21:20 BP 108/71 12/18/18 21:20 Pulse Ox 95 12/18/18 21:20 - Medical History PMH: Anxiety, Asthma, Back Problems (Back Pain), Bipolar Disorder, Depression, Hepatitis (C), HTN Denies: Diabetes, HIV (Tested Negative), Seizures, Sexually Transmitted Disease - [facility] Procedures DETOXIFICATION SERVICES FOR SUBSTANCE ABUSE TREATMENT (08/12/18) INDIV PSYCHOTHERAPY FOR SUBSTANCE ABUSE, PSYCHOEDUCATION (11/01/17) MEDICATION MANAGEMENT (11/01/17) PHARMACOTHERAPY FOR SUBSTANCE ABUSE, OTH REPLACE MED (11/01/17) Family History: States: Unknown Family Hx - Social History Hx Alcohol Use: Yes Hx Substance Use: Yes - Immunization History Hx Tetanus Toxoid Vaccination: Yes Hx Influenza Vaccination: Yes Hx Pneumococcal Vaccination: No Review Of Systems Constitutional: Negative for: Fever, Chills Cardiovascular: Negative for: Chest Pain, Palpitations Respiratory: Negative for: Cough, Shortness of Breath Gastrointestinal: Negative for: Nausea, Vomiting Neurological: Negative for: Weakness, Numbness Physical Exam - Physical Exam Appears: Well, Non-toxic, No Acute Distress Skin: Normal Color, Warm, No Rash Head: Atraumatic, Normacephalic Eye(s): bilateral: Normal Inspection Cardiovascular: Rhythm Regular Respiratory: No Accessory Muscle Use, Other (Normal inspiratory effort) Gastrointestinal/Abdominal: Soft, No Distention Back: Other (Ambulating with upright steady gait) Neurological/Psych: Oriented x3, Normal Speech ED Course And Treatment - Laboratory Results Result Diagrams: 12/18/18 22:01 12/18/18 22:01 Lab Results: Total Bilirubin 0.3 mg/dL (0.2-1.3) 12/18/18 22:01 AST 67 U/L (17-59) H D 12/18/18 22:01 ALT 48 U/L (21-72) 12/18/18 22:01 Alkaline Phosphatase 90 U/L (38-126) 12/18/18 22:01 Total Protein 7.5 g/dL (6.3-8.3) 12/18/18 22:01 Albumin 4.4 g/dL (3.5-5.0) 12/18/18 22: Globulin 3.1 gm/dL (2.2-3.9) 12/18/18 22:01 Albumin/Globulin Ratio 1.4 (1.0-2.1) 12/18/18 22:01 Urine Color Cori (YELLOW) 12/18/18 22: Urine Clarity Hazy (Clear) 12/18/18 22: Urine pH 5.0 (5.0-8.0) 12/18/18 22:01 Ur Specific [place] 1.033 (1.003-1.030) H 12/18/18 22:01 Urine Protein Negative mg/dL (NEGATIVE) 12/18/18 22:01 Urine Glucose (UA) Normal mg/dL (Normal) 12/18/18 22:01 Urine Ketones Trace mg/dL (NEGATIVE) 12/18/18 22: Urine Blood Negative (NEGATIVE) 12/18/18 22: Urine Nitrate Negative (NEGATIVE) 12/18/18 22:01 Urine Bilirubin 1+ (NEGATIVE) H 12/18/18 22:01 Urine Urobilinogen 4.0 mg/dL (0.2-1.0) 12/18/18 22:01 Ur Leukocyte Esterase Neg Siddharth/uL (Negative) 12/18/18 22:01 Urine WBC (Auto) 2 /hpf (0-5) 12/18/18 22:01 Urine RBC (Auto) 5 /hpf (0-3) H 12/18/18 22:01 Hyaline Casts 0-2 /lpf (0-2) 12/18/18 22:01 Urine Sperm (Auto) Many /hpf (NONE) H 12/18/18 22:01 O2 Sat by Pulse Oximetry: 95 Medical Decision Making Medical Decision Making: Patient medically cleared, accepted into detox unit. 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 - Scribe Statement The provider has reviewed the documentation as recorded by the Scribmarci Tan All medical record entries made by the Tawnyibmarci were at my direction and personally dictated by me. I have reviewed the chart and agree that the record accurately reflects my personal performance of the history, physical exam, medical decision making, and the department course for this patient. I have also personally directed, reviewed, and agree with the discharge instructions and disposition. Decision To Admit - Pt Status Changed To: Hospital Disposition Of: Observation - . Bed Request Type: Detox Admitting Physician: Dante Welch Patient Diagnosis: Opioid use disorder, severe, dependence, Alcohol use disorder, severe, dependence, Depressive disorder
--- NOTE | 2018-12-19 01:34 | PCM.BM ---
Treatment Plan Problems - Problems identified on initial assessmt Denieal Date Initiated: 12/19/18 Time Initiated: Date resolved: 12/19/18 Assessment reference: NA Status: Active defensive coping Date Initiated: 12/19/18 Time Initiated: Date resolved: 12/19/18 Assessment reference: NA Status: Active chronic low self steem Date Initiated: 12/19/18 Time Initiated: Date resolved: 12/19/18 Assessment reference: NA Status: Active Treatment assets and liabiliti Patient Assests: adapts well, cooperative, motivated, ADL independent, negotiates basic needs, cognitively intact, strong brannon Patient Liabilities: relationship conflicts ( with two children in another state), substance abuse (heroine, ETOH ) - Milieu Protocol Maintain good personal hygiene: daily Encourage regular showers, daily Remind patient to perform daily oral care, daily Assist patient to perform ADL's Conduct patient checks and document Observation sheet: Q15 minutes Maintain personal safety: every shift Educate patient to report safety concerns to staff, every shift Monitor environment for contraband/sharps Medication safety: Monitor for expected outcome, potential side effects: every shift, Assess barriers to learning: every shift, Assess readiness for medication education: every shift
--- NOTE | 2018-12-19 22:48 | PCM.PSYCH ---
Initial Psychiatric Evaluation - Initial Psychiatric Evaluation Type of Admission: Voluntary Legal Status: Capacity Chief Complaint (in patient's own words): "I need detox for heroin" History of Present Illness and Precipitating Events: Patient is a 48 year old male, who presented to the ED for opiates, and alcohol detox. He reports snorting 10 bags of heroin daily for the last 5-6 years. Patient also reports drinking a pint of whiskey daily since he was 15 years old. He snorts cocaine once in a while. He has been to several detox in the past, the last time he was in detox was late last year here at [facility]. He reports being sober for a few weeks then relapsed on both heroin and alcohol. He report having withdrawal symptoms including shakes, join pains, n/v and irritability. Patient denies any history of seizures or DTs. Patient lives alone and he is motivated to getting sober. Patient has been treated for depression in the past with Prozac. Patient denies any SI/HI at this time. PsychHx: Opiates Use Disorder, Alcohol Use Disorder, Cocaine Use Disorder and Depression PMHx: Asthma FamHx: Denies Current Medications: Active Medications Generic Name Dose Route Start Last Admin Trade Name Freq PRN Reason Stop Dose Admin Acetaminophen 650 mg 12/19/18 03:06 Tylenol 325mg Tab PO Q6 PRN Agitation Chlordiazepoxide 25 mg 12/19/18 03:01 12/19/18 09:54 Librium PO 25 mg Q6 PRN Administration Agitation Methadone HCl 20 mg 12/19/18 15:00 12/19/18 15:02 Methadone PO 12/23/18 14:59 20 mg Q24H PRIMITIVO Administration Taper Trazodone HCl 50 mg 12/19/18 21:48 12/19/18 21:53 Desyrel PO 50 mg HS PRN Administration Sleep Past Psychiatric History - Past Psychiatric History Pertinent Medical Hx (Current Medical&Sleep Prob, Allergies): Allergies Allergy/AdvReac Type Severity Reaction Status Date / Time shrimp Allergy Intermediate ANGIOEDEMA Verified 08/12/18 13:13 Escitalopram [Lexapro] 10 mg PO DAILY #30 tab 08/18/18 Gabapentin [Neurontin] 300 mg PO BID #60 cap 08/18/18 Mirtazapine [Remeron] 30 mg PO HS #30 tab 12/25/18 QUEtiapine [Seroquel] 100 mg PO HS #30 tab 08/18/18 traZODone [Desyrel] 100 mg PO HS PRN #30 tab 08/18/18 Review of Systems - Psychiatric Psychiatric: As Per HPI, Abnormal Sleep Pattern, Anxiety, Behavioral Changes, Depression Mental Status Examination - Personal Presentation Personal Presentation: Looks stated age - Affect Affect: Constricted, Depressed - Motor Activity Motor Activity: Calm - Speech Speech: Relevant, Coherent - Mood Mood: Depressed - Formal Thought Process Formal Thought Process: No Impairment - Obsessions/Compulsions Obsessions: None Compulsions: None - Cognitive Functions Orientation: Person, Place, Situation, Time Sensorium: Alert Attention/Concentration: Attentive Estimate of Intelligence: Average Judgement: Imparied, as evidence by: Poor judgement - Risk Risk: Withdrawal - Limitations Limitations: Living alone DSM 5 DX - DSM 5 DSM 5 Diagnosis: Opiates Use Disorder Alcohol Use Disorder Cocaine Use Disorder Major Depressive Disorder, Recurrent, Moderate - Recommended/Plan of Treatment Treatment Recommendations and Plan of Treatment: Taper with Methadone Gabapentin for augmentation if needed As needed medications - Librium and Trazodone All risks, benefits and alternatives of the meds discussed, and the pt agreed and understood. Attend groups and activities Supportive therapy and psychoeducation [place] for abstinence CBT for relapse prevention Encourage MAT Refer to rehab or IOP, and self-help groups Teach healthy lifestyle methods, i.e. diet, exercise, meditation 38 min
--- NOTE | 2018-12-21 12:52 | PCM.PYCHPN ---
Psychiatric Progress Note - Psychiatric Progress Note Medication Change: Yes Medical Record Reviewed: Yes Mental Status Examination - Cognitive Function Orientation: Person, Place, Situation, Time - Mood Mood: Depressed - Affect Affect: Constricted, Depressed - Formal Thought Process Formal Thought Process: No Impairment
[2018-12-21] MEDS ORDERED: Aluminum Hydroxide/Magnesium Hydroxide Susp (30 mL) PO PRN (14:43)
[2018-12-23 07:43] VITALS: BP 127/81; PULSE 62; RESP 18; TEMP 97.4; O2SAT 99
--- NOTE | 2018-12-23 08:45 | PCM.PYCHDC ---
Mental Status Examination - Mental Status Examination Orientation: Person, Place, Situation, Time Memory: Intact Mood: Anxious Affect: Constricted Speech: Appropriate Attention: WNL Concentration: WNL Association: WNL Fund of Knowledge: WNL Formal Thought Process: No Impairment Suicidal Ideation: No Current Homicidal Ideation?: No Discharge Summary - Discharge Note Reason for Hospitalization: Opioid detox Consultations:: List each consultation separately and include: 1. Reason for request. 2. Findings. 3. Follow-up Summary of Hospital Course include:: 1. Description of specific treatment plan utilized for patients during their course of treatmen. 2. Summarize the time- course for resolution of acute symptoms and/or regressed behaviors. 3. Describe issues identified and worked on during hospitalization. 4. Describe medication utilized. 5. Describe medical problems identified and treated. 6. Reassessment of suicide risk Summary of Hospital Course: Hospital course: The pt was admitted and started on treatment with psychotherapy, support, psychoeducation and medications. MD and CBT used. The pt attended groups and activities, as well as milieu therapy. All the risks and benefits of medications are discussed and the patient understood and agreed. The pt improved with the treatments provided. After care discussed with the patient. He will consider [facility] program. - Final Diagnosis (DSM 5) Condition upon Discharge: STABLE DSM 5: Opiates Use Disorder Alcohol Use Disorder Cocaine Use Disorder Major Depressive Disorder, Recurrent, Moderate Disposition: HOME/ ROUTINE Follow-up Treatment Plan: Continue below medications after discharge. Follow after care plan as discussed. Use relapse prevention skills Return to ER or call 911 if suicidal, homicidal or symptoms relapse. Stay away from stress, alcohol and drugs. See primary doctor regularly and get labs. Prescriptions/Medication Reconciliation: hydrOXYzine HCl [Atarax] 50 mg PO BID PRN #60 tab PRN Reason: Anxiety Mirtazapine [Remeron] 15 mg PO HS #30 tab traZODone [Desyrel] 100 mg PO HS PRN #30 tab PRN Reason: Insomnia
--- NOTE | 2018-12-23 14:25 | PCM.PYCHPN ---
Psychiatric Progress Note - Psychiatric Progress Note Patient seen today, length of contact: 15 min Medication Change: Yes Medical Record Reviewed: Yes Mental Status Examination - Cognitive Function Orientation: Person - Mood Mood: Depressed - Affect Affect: Constricted, Depressed - Formal Thought Process Formal Thought Process: No Impairment
== END 2018-12-23 11:55 | disposition home or self-care (01) | DRG 897 ==
LOC: C.ER 21:13 → C.7D 23:07 → OBSVTOIN 12-20 00:30
PROVIDERS: ADMIT Psychiatry & Neurology Psychiatry; ATTEND Psychiatry & Neurology Psychiatry
PROC: GZ56ZZZ Individual Psychotherapy, Supportive (ICD-10-PCS; principal; 2018-12-20)
DX: F11.20 Opioid dependence, uncomplicated (principal); F33.1 Major depressive disorder, recurrent, moderate; F14.10 Cocaine abuse, uncomplicated; I10 Essential (primary) hypertension; J45.909 Unspecified asthma, uncomplicated; F31.9 Bipolar disorder, unspecified; F10.20 Alcohol dependence, uncomplicated; Y90.6 Blood alcohol level of 120-199 mg/100 ml